=== PATIENT | female | born 1930 | race Caucasian/White ===

== ENCOUNTER 2017-01-15 16:08 | Emergency (ER) | payer MEDICARE, OTHER ==
--- NOTE | 2017-01-15 17:21 | RAD ---
INDICATION: Right lower leg pain COMPARISON: None TECHNIQUE: AP and lateral views were obtained. FINDINGS: There are no acute bony findings. There is right knee arthroplasty which is imaged in part. There is an Achilles calcaneal spur. The soft tissues are normal. IMPRESSION: NO ACUTE BONY FINDINGS.
--- NOTE | 2017-01-15 17:34 | UC ---
Lower Extremity/Ankle HPI - HPI Summary HPI Summary: 86 yo female with a 2 day hx of right ruby pain with wt bearing Pain free if sitting no trauma hx R knee replacement - History of Current Complaint Chief Complaint: UCLowerExtremity Stated Complaint: RIGHT LEG PAIN Time Seen by Provider: 01/15/17 16:36 Hx Obtained From: Patient Hx Last Menstrual Period: NA Onset/Duration: Gradual Onset, Lasting Minutes Severity Initially: Moderate Severity Currently: None Pain Intensity: 0 - no pain unless wt bearing Pain Scale Used: 0-10 Numeric Aggravating Factor(s): Standing, Ambulation Alleviating Factor(s): Rest, Elevation Able to Bear Weight: Yes - Allergies/Home Medications Allergies/Adverse Reactions: Allergies Allergy/AdvReac Type Severity Reaction Status Date / Time Naproxen Allergy Intermediate Rash And Verified 01/15/17 16:34 Itching Niacin Allergy Intermediate Flushing Verified 01/15/17 16:34 Home Medications: Home Medications Aspirin EC Low Dose* [Ecotrin EC Low Dose 81 MG*] 81 mg PO DAILY 01/15/17 [ History Confirmed 01/15/17] Calcium Carbonate-Cholecalcife [Calcium 600 + D 600-200 mg-Unit] 1 tab PO DAILY 01/15/17 [History Confirmed 01/15/17] Cholecalciferol TAB* [Vitamin D TAB*] 1,000 unit PO DAILY 01/15/17 [History Confirmed 01/15/17] Olmesartan Medoxomil [Benicar] 5 mg PO DAILY 01/15/17 [History Confirmed ] celeCOXIB CAP* [CeleBREX CAP*] 100 mg PO DAILY 01/15/17 [History Confirmed 01/15] metFORMIN* [Glucophage 500 MG TAB *] 500 mg PO BID 01/15/17 [History Confirmed 01/15/17] PMH/Surg Hx/FS Hx/Imm Hx Endocrine History Of: Reports: Diabetes Cardiovascular History Of: Reports: Hypertension Denies: Cardiac Disorders Respiratory History Of: Reports: Asthma - Surgical History Surgical History: Yes Surgery Procedure, Year, and Place: BACK SX. KNEE REPLACEMENT R. HYSTERECTOMY. maria r - Family History Known Family History: Positive: Hypertension - Social History Alcohol Use: None Substance Use Type: None Smoking Status (MU): Never Smoked Tobacco - Immunization History Most Recent Influenza Vaccination: [id number] Most Recent Tetanus Shot: about 2013 Most Recent Pneumonia Vaccination: yes, at least one Review of Systems Constitutional: Negative Skin: Negative Eyes: Negative ENT: Negative Respiratory: Negative Cardiovascular: Negative Gastrointestinal: Negative Genitourinary: Negative Motor: Negative Neurovascular: Negative Musculoskeletal: Myalgia Neurological: Negative Psychological: Negative All Other Systems Reviewed And Are Negative: Yes Physical Exam Triage Information Reviewed: Yes Appearance: Well-Appearing, No Pain Distress, Well-Nourished Vital Signs: Initial Vital Signs Temp 97.8 F 01/15/17 16:24 Pulse 88 01/15/17 16:24 Resp 16 01/15/17 16:24 BP 142/106 01/15/17 16:24 Pulse Ox 96 01/15/17 16:24 Vital Signs Reviewed: Yes Eyes: Positive: Conjunctiva Clear ENT: Negative: Nasal congestion, Nasal drainage, Tonsillar exudate, Trismus, Muffled/hoarse voice Neck: Positive: Supple Respiratory: Positive: Lungs clear, Normal breath sounds, No respiratory distress, No accessory muscle use Cardiovascular: Positive: RRR. Negative: Tachycardia, Bradycardia Musculoskeletal: Positive: Strength Intact, ROM Intact, No Edema Neurological: Positive: Alert Skin Exam: Normal Skin: Positive: Other - skin intact over ruby/no swelling or erythema/no rash leg warm good pulses Lower Extremity Course/Dx - Differential Dx/Diagnosis Provider Diagnoses: right ruby pain of uncertain cause Discharge - Discharge Plan Condition: Stable Disposition: HOME Patient Education Materials: Muscle Strain (ED) Referrals: Morgan Quiñones MD [Primary Care Provider] - 5 Days (if not better) Additional Instructions: your XR was fine tylenol ice twice daily recheck with your MD next week... BP was up 142/106 Images Front/Back of Body, Lg ([place]): 1 - pain here with wt bearing
[2017-01-15 17:45] VITALS: BP 146/82
== END 2017-01-15 17:45 | disposition home or self-care (01) ==
LOC: UCCORT 16:08
DX: M79.661 Pain in right lower leg (principal); I10 Essential (primary) hypertension; E11.9 Type 2 diabetes mellitus without complications; Z96.651 Presence of right artificial knee joint; Z79.82 Long term (current) use of aspirin; Z88.6 Allergy status to analgesic agent; Z88.8 Allergy status to other drugs, medicaments and biological substances
CPT/HCPCS: 99202; G0463

== ENCOUNTER 2017-04-27 08:26 | Inpatient (IN) | payer MEDICARE, OTHER ==
--- NOTE | 2017-04-19 18:02 | HP ---
HISTORY AND PHYSICAL: DATE OF ADMISSION/SURGERY: 04/27/17 SURGEON: Dr. Mccarthy (DICTATED BY BECCA SOTO) PROCEDURE: Right total hip arthroplasty. CHIEF COMPLAINT: Right hip pain. HISTORY OF PRESENT ILLNESS: Ms. Clement is an 87-year-old female with complaints of right hip pain secondary to advanced osteoarthritis. She has failed conservative management and has elected to proceed with a right total hip arthroplasty which is scheduled for 04/27/17. PAST MEDICAL HISTORY: 1. Hypertension. 2. Hypercholesterolemia. 3. Diabetes. 4. Depression. 5. Anxiety. 6. Diverticulitis. PAST SURGICAL HISTORY: 1. Hysterectomy. 2. Lumbar spinal fusion. 3. Right total knee arthroplasty. 4. Cholecystectomy. 5. Tonsillectomy. CURRENT MEDICATIONS: 1. Benicar 20 mg once a day. 2. Tylenol Extra Strength. 3. Celebrex 200 mg once a day. 4. Metformin 500 mg once a day. 5. Calcium, vitamin D. 6. Clonazepam 0.5 mg once a day. 7. Detrol LA once a day. 8. Crestor. ALLERGIES: To NAPROXEN, LISINOPRIL, and NIACIN. FAMILY HISTORY: Diabetes and lung cancer. SOCIAL HISTORY: She is an 87-year-old female. She lives alone. She does not smoke, use drugs or alcohol. REVIEW OF SYSTEMS: A complete 14-point review of systems was reviewed with the patient, was positive for diabetes. PHYSICAL EXAMINATION GENERAL: She is well developed, well nourished in no acute distress. VITAL SIGNS: She stands 5 feet tall, weighs 190 pounds. Her blood pressure is 149/91, her heart rate is 91. HEENT: Normocephalic, atraumatic. NECK: Supple. No palpable lymph nodes. PULMONARY: The lungs are clear to auscultation bilaterally. CARDIOVASCULAR: Regular rate and rhythm. Strong S1, S2. ABDOMEN: Soft, nontender, nondistended. NEUROLOGICAL: She is alert and oriented x3. Cranial nerves II through XII are intact. MUSCULOSKELETAL: Right lower extremity: The skin is intact. No open wounds or abrasions. She has limited range of motion with internal and external rotation of the right hip. She walks with an antalgic-type gait. Her lower extremity muscle group strengths are intact at 5/5. She has 2+ dorsalis pedis pulses and intact sensation. ASSESSMENT AND PLAN: Ms. Clement is an 87-year-old female with complaints of right hip pain secondary to advanced osteoarthritis. She has failed conservative management and has elected to proceed with a right total hip arthroplasty. The surgery is scheduled for 04/27/[address] Mccarthy. Coumadin, Colace, and Percocet were sent to her pharmacy for postoperative pain control and DVT prophylaxis. She will see Dr. Mccarthy back 2 weeks after the surgery. BECCA SOTO [id number]/[facility] #: [id number] MTDQiana
[~2017-04-27 08:26] MED LIST: Buffered Lidocaine 0.9% SYRIN* 5 ML/SYR SYRINGE INTRADERM ONE; Buffered Lidocaine 0.9% SYRIN* 5 ML/SYR SYRINGE ONE; Dexamethasone IV* 4 MG/ML 1 ML (4 MG) IV SLOW PU ONE; Dexamethasone IV* 4 MG/ML 1 ML (4 MG) ONE; Famotidine IV* 10 MG/ML 2 ML (20 mg) IV ONE; Famotidine IV* 10 MG/ML 2 ML (20 mg) ONE; ceFAZolin 2 GM PREMIX(*) 0 GM/0 ML BAG IVPB ONE
[2017-04-27] MEDS ORDERED: ceFAZolin 2 GM PREMIX(*) 2 GM/50 ML BAG IVPB ONE (08:54)
[2017-04-27] MEDS ORDERED: fentaNYL* 50 MCG/ML 2 ML VIAL (100 MCG VIAL) ONE ×2 (09:21→12:32)
[2017-04-27] MEDS ORDERED: Midazolam* 1 MG/ML 5 ML VIAL (5 MG) ONE (09:21)
[2017-04-27] MEDS ORDERED: Morphine PF AMP (0.5MG/ML)* 5 MG/10 ML AMP ONE (09:22)
[2017-04-27] MEDS ORDERED: Bupivacaine 0.5% SDV PF* 30 ML VIAL ONE (09:58)
[2017-04-27] MEDS ORDERED: Ondansetron INJ* 2 MG/ML VIAL ONE (10:46)
[2017-04-27] MEDS ORDERED: Phenylephrine IV* 40 MCG/ML 10 ML SYRINGE ONE (10:47)
[2017-04-27] MEDS ORDERED: Propofol* 10 MG/ML 20 ML BTL IV PUSH ONE ×2 (11:03→11:41)
[2017-04-27] MEDS ORDERED: Lidocaine 2% PF * 5 ML VIAL ONE (11:03)
[2017-04-27] MEDS ORDERED: EPHEDrine (Pressors)* 50 MG/ML VIAL ONE (11:03)
[2017-04-27] MEDS ORDERED: Nalbuphine* 20 MG/ML 1 ML VIAL IV PRN ×2 (11:12→11:15)
[2017-04-27] MEDS ORDERED: PROCHLORPERAZINE INJ 5 MG/ML 2 ML VIAL IV PRN ×2 (11:12→11:15)
[2017-04-27] MEDS ORDERED: Scopolamine 1.5 mg* PATCH TRANSDERM PRN ×2 (11:12→11:15)
[2017-04-27] MEDS ORDERED: fentaNYL* 50 MCG/ML 2 ML VIAL (100 MCG VIAL) IV PRN (11:12)
[2017-04-27] MEDS ORDERED: oxyCODONE TAB* 5 MG TAB PO PRN ×2 (11:12→11:15)
[2017-04-27] MEDS ORDERED: Acetaminophen IV 1GM/100ML * 100 ML IVPB ONE (11:12)
[2017-04-27] MEDS ORDERED: Naloxone* 0.4 MG/ML 1 ML VIAL IV PRN (11:15)
[2017-04-27] MEDS ORDERED: Ondansetron INJ* 2 MG/ML VIAL IV PRN (11:15)
[2017-04-27] MEDS ORDERED: Scopolomine PATCH Remove* 1 NOTE MISC PATCH OFF PRN (11:15)
[2017-04-27] MEDS ORDERED: Phenylephrine INJ* 10 MG/ML 1 ML VIAL (10 MG) ONE (11:29)
--- NOTE | 2017-04-27 12:15 | RAD ---
INDICATION: Right total hip replacement surgery. COMPARISON: Comparison is made with a prior x-ray study of the right hip from February 25, 2017. TECHNIQUE: A single portable view of the pelvis centered on the right side was obtained in the operating room. FINDINGS: The patient is undergoing a total right hip replacement surgery. The acetabular prosthesis is in place and there is a femoral prostheses template in place. There is noted within the adjacent soft tissues consistent with the patient's surgery. IMPRESSION: INTRAOPERATIVE CONTROL FILMS.
[2017-04-27] MEDS ORDERED: Polyethylene Glycol 3350* 17 GM PACKET PO PRN (13:14)
[2017-04-27] MEDS ORDERED: Bisacodyl SUPP* 10 MG SUPP PR PRN (13:14)
[2017-04-27] MEDS ORDERED: diPHENhydraMINE IV* 50 MG/ML 1 ml VIAL (BENADRYL) IV PRN (13:14)
[2017-04-27] MEDS ORDERED: Acetaminophen IV 1GM/100ML * 100 ML ONE (14:00)
--- NOTE | 2017-04-27 14:07 | RAD ---
Indication: Right hip pain. 2 views of the right hip and an AP view the pelvis demonstrates right hip replacement in satisfactory position. IMPRESSION: Right hip replacement in satisfactory position.
[2017-04-27] MEDS: Acetaminophen TAB* 325 MG PO SCH ×2 (15:34→21:06)
[2017-04-27] MEDS ORDERED: Dextrose 50% Syringe 50 ML* 25 GM/50 ML SYRINGE IV PUSH PRN (16:06)
[2017-04-27] MEDS ORDERED: Warfarin TAB(*) 6 MG PO ONE (17:00)
[2017-04-27] MEDS: ceFAZolin VIAL(*) 1 GM in NS 0.9% 50 ML* 50 ML IVPB SCH (17:10)
[2017-04-27] MEDS: Insulin LISPRO* 1 UNITS UNIT SUBCUT SCH (17:17)
[2017-04-27] MEDS: Docusate CAP* 100 MG PO SCH (21:06)
[2017-04-27] MEDS: Citalopram TAB* 10 MG PO SCH (21:06)
[2017-04-27] MEDS: clonazePAM TAB(*) 0.5 MG PO SCH (21:06)
--- NOTE | 2017-04-27 23:18 | CONS ---
CC: Dr. Quiñones* MEDICINE CONSULTATION REPORT: DATE OF CONSULT: 04/27/17 PROVIDER: Hector Pal NP CONSULTING PHYSICIAN: Dr. Tia Bello (as dictated by Hector Pal NP). ATTENDING PHYSICIAN: Dr. Amirah Mccarthy, Orthopedic Surgery. PRIMARY CARE PROVIDER: Dr. Quiñones. REASON FOR CONSULT: Co-medical management in the postoperative period following right total hip arthroplasty. HISTORY OF PRESENT ILLNESS: Ms. Clement is an 87-year-old female, who is status post right total hip arthroplasty. The patient reports ongoing pain and difficulty with the right hip, has failed conservative outpatient management. I did see the patient in the postoperative period and she is still somewhat sleepy. However, she denies any recent fever, chills, cold or flu symptoms, chest pain, shortness of breath, abdominal pain, nausea, vomiting. She currently feels fine and denies any pain to the hip. Her only complaint at the moment is itchiness of the face. Prior to admission, the patient had no acute complaints and stated that she was feeling in relatively good health. PAST MEDICAL HISTORY: Significant for: 1. Osteoarthritis. 2. Diabetes mellitus. 3. Hypertension. 4. Hypercholesterolemia. 5. Urinary incontinence. 6. Diverticulitis. 7. Dysthymia. 8. Intertrigo. PAST SURGICAL HISTORY: 1. Hysterectomy. 2. Lumbar spinal fusion. 3. Right total knee arthroplasty. 4. Cholecystectomy. 5. Tonsillectomy. HOME MEDICATIONS: 1. Benicar 20 mg b.i.d. 2. Cholecalciferol 1000 units daily. 3. Calcium, vitamin D supplement 1 tab daily. 4. Metformin 500 mg daily. 5. Clonazepam 0.5 mg b.i.d. 6. Citalopram 10 mg at bedtime. 7. Rosuvastatin 5 mg q.a.m. 8. Detrol LA 4 mg q.a.m. 9. Celecoxib 100 mg daily. 10. Aspirin 81 mg daily. 11. Furosemide 20 mg daily p.r.n. for leg swelling. ALLERGIES: Include LISINOPRIL, NAPROXEN, NIACIN. FAMILY HISTORY: Includes history of diabetes and lung cancer. SOCIAL HISTORY: Ms. Clement denies any tobacco, alcohol, illicit drug use. She does live alone. She was recently , she states her in June of last year. She does report good support from her family and states that her daughters, Kellie and Yana Nazario, are her surrogate decision makers in the event of emergency. REVIEW OF SYSTEMS: As per HPI, all those not mentioned are negative. PHYSICAL EXAM: General: Ms. Clement is an 87-year-old female who is well developed, well nourished, she is lying in the PACU stretcher, no acute distress. Vital Signs: Temperature 97.0, heart rate 86, respiratory rate 14, blood pressure 111/57, O2 saturation is 97% on 2 L nasal cannula. HEENT: Head is atraumatic, normocephalic. Face is symmetrical. Pupils are equal, round, and reactive to light. Extraocular movements are intact. Oral mucosa appears somewhat tacky. Neck is supple. No lymphadenopathy appreciated. No JVD noted. Cardiac: S1, S2. Heart sounds regular rate and rhythm. No murmurs, rubs, or gallops. No lower extremity edema noted and distal pulses are 2+. Respiratory : Lungs are clear to auscultation. No accessary muscle use noted. Abdomen: Soft, nontender, nondistended. Bowel sounds present times all 4 quadrants. Musculoskeletal: There is no clubbing or cyanosis. The patient does have a clean, dry, intact dressing to the right hip. Skin: Limited assessment but appears grossly intact. Neuro: The patient is able to move all extremities. Sensation intact to light touch. She is alert and oriented but is drowsy at this time and recall is slow. LABORATORY DATA: There is no current laboratory data for our review. ASSESSMENT AND PLAN: Ms. Clement is an 87-year-old female who is now status post right total hip arthroplasty after failing outpatient conservative management. Our recommendations are as follows: 1. Status post right total hip replacement postop day 0: Management per Ortho. Continue with pain management, PT/OT consults, and trending the patient' s H and H and other labs. 2. Diabetes: The patient states that she has good blood glucose control at home and is on metformin at home. We will switch her at this time to lispro sliding scale insulin and hold her metformin and check fingerstick blood glucoses a.c. and h.s. 3. Hypertension: Currently normotensive. Continue home losartan, withhold parameters. 4. Hyperlipidemia and hypercholesterolemia: Continue home statin. 5. History of urinary incontinence: Continue Detrol LA. 6. History of dysthymia and depression: Continue home citalopram. 7. Osteoarthritis: Continue p.r.n. pain medication, we will hold Celebrex. 8. History of lower extremity edema, not a current issue. Continue to monitor. 9. FEN: Consistent carbohydrate diet. 10. DVT prophylaxis: Per Ortho, the patient is ordered enoxaparin and warfarin. 11. Code status: The patient is a full code. TIME SPENT: Time spent on this consultation approximately 45 minutes. More than half the time was spent [id number] with the patient obtaining history and physical, performing physical examination, and reviewing plan of care. Plan of care also reviewed with attending, Dr. Bello, who is in agreement. HECTOR PAL NP [id number]/[facility] #: [id number] CINDY
[2017-04-28] MEDS: ceFAZolin VIAL(*) 1 GM in NS 0.9% 50 ML* 50 ML IVPB SCH ×2 (00:44→08:25)
[2017-04-28] MEDS ORDERED: Ondansetron INJ* 2 MG/ML VIAL IV PRN (02:00)
[2017-04-28] MEDS ORDERED: oxyCODONE TAB* 5 MG TAB PO PRN (02:00)
[2017-04-28] MEDS ORDERED: Morphine INJ* 2 MG/ML 1 ML SYRINGE IV PRN (02:00)
[2017-04-28] MEDS ORDERED: oxyCODONE/Acetamin 5/325 MG* TAB PO PRN (02:00)
[2017-04-28] MEDS: Acetaminophen TAB* 325 MG PO SCH (04:33)
[2017-04-28 07:12] LABS: Hematocrit 27 % (35-47)
[2017-04-28] MEDS: oxyCODONE/Acetamin 5/325 MG* TAB PO PRN ×2 (07:16→18:09)
[2017-04-28 07:49] LABS: BUN/Creatinine Ratio 26.9 (8-20); Blood Urea Nitrogen 29 mg/dL (6-24); CO2 Carbon Dioxide 21 mmol/L (22-32); Calcium 8.3 mg/dL (8.6-10.3); Chloride 104 mmol/L (101-111); EGFR African American 61.6 (>60); EGFR Non-African American 47.9 (>60); Glucose 142 mg/dL (70-100); Sodium 134 mmol/L (133-145)
[2017-04-28 07:53] LABS: Anion Gap 9 mmol/L (2-11)
[2017-04-28] MEDS: Insulin LISPRO* 1 UNITS UNIT SUBCUT SCH ×3 (08:20→18:08)
[2017-04-28] MEDS: Atorvastatin* 10 MG TAB PO SCH (08:22)
[2017-04-28] MEDS: Docusate CAP* 100 MG PO SCH (08:22)
[2017-04-28] MEDS: clonazePAM TAB(*) 0.5 MG PO SCH (08:22)
[2017-04-28] MEDS: Oxybutynin XL TAB* 5 MG PO SCH (08:22)
[2017-04-28] MEDS ORDERED: metFORMIN* 500 MG TAB PO SCH (09:00)
--- NOTE | 2017-04-28 11:02 | PN ---
Progress Note - Progress Note SOAP: Subjective: []Patient seen OOB in chair. States she has no hip pain while at rest. Tolerable when up. Denies SOB, dizziness or CP. Objective: [] Vital Signs Temp 97.4 F 04/28/17 07:58 Pulse 79 04/28/17 07:58 Resp 14 04/28/17 09:16 BP 120/56 04/28/17 07:58 Pulse Ox 100 04/28/17 08:00 Intake & Output 04/27/17 04/28/17 04/28/17 18:59 06:59 18:59 Intake Total 3365 1460 480 Output Total 350 500 75 Balance 3015 960 405 Weight 185 lb Intake: IV Fluids 3050 1020 ABX - CEFAZOLIN 115 LR 3000 905 NS 50ML, Cefazolin 2G 50 Oral 315 440 480 Output: Coelho 350 500 75 Other: Estimated Blood Loss 300 Comment Laboratory Results - last 24 hr 04/27/17 04/27/17 04/28/17 16:47 21:06 05:14 Hgb Hct INR (Anticoag Therapy) Sodium 134 Potassium TNP Chloride 104 Carbon Dioxide 21 L Anion Gap 9 BUN 29 H Creatinine 1.08 H Est GFR ( Amer) 61.6 Est GFR (Non-Af Amer) 47.9 BUN/Creatinine Ratio 26.9 H Glucose 142 H POC Glucose (mg/dL) 204 H 205 H Calcium 8.3 L 04/28/17 04/28/17 04/28/17 06:58 06:58 07:07 Hgb 9.0 L Hct 27 L INR (Anticoag Therapy) 0.98 Sodium Potassium Chloride Carbon Dioxide Anion Gap BUN Creatinine Est GFR ( Amer) Est GFR (Non-Af Amer) BUN/Creatinine Ratio Glucose POC Glucose (mg/dL) 157 H Calcium Right hip dressing is dry and intact calf NT and soft +DF/PF right ankle sensation intact Assessment: []s/p Right total hip arthroplasty POD #1 Plan: []PT/OT WBAT RLE Coumadin with Lovenox bridge- 8 mg today PMRU consult pending
--- NOTE | 2017-04-28 11:09 | OP ---
DATE OF OPERATION: 04/27/17 - ROOM #336 DATE OF : [birth year] ATTENDING SURGEON: Amirah Mccarthy MD COAL TRIMMER MACHINE OPERATOR: BECCA Luu. Ms. Davies did help throughout the procedure with preparation of the leg, wound retraction, manipulation of the hip, and wound closure. ANESTHESIOLOGIST: Carmela Vera MD ANESTHESIA: Spinal. PRE-OP DIAGNOSIS: Severe end-stage degenerative osteoarthritis of the right hip joint. POST-OP DIAGNOSIS: Severe end-stage degenerative osteoarthritis of the right hip joint. OPERATIVE PROCEDURE: Right total hip arthroplasty. COMPLICATIONS: None. EBL: 300 cc. SPECIMEN: Femoral head and acetabular reaming sent to pathology. HARDWARE USED: This is uncemented Alabaster total hip hardware. For the cup, a Trident hemispherical acetabular shell 52E, one 16-mm and one 20-mm screw used. For the liner, a Trident X3 0-degree polyethylene insert 40E. For the stem, an Accolade TMZF size 3 with a 132-degree neck. For the head, a Biolox delta ceramic V40 femoral head size 40 with a -2.5 adaptor sleeve. BRIEF HISTORY/INDICATION: Ms. Clement is an 87-year-old female with years of increasingly severe right hip pain. She failed conservative treatment with antiinflammatories, pain medication, activity modification, and physical therapy. Radiographs confirmed end-stage arthritis of the hip joint. The patient elected to have right total hip arthroplasty due to continued pain and decreased quality of life. Informed consent was obtained from the patient. She understood the risks of surgery included, but were not limited to bleeding, infection, damage to nearby structures, continued pain, need for further surgery , intraoperative fracture, nerve palsy, hardware failure or loosening, dislocation, leg length discrepancy, stroke, heart attack, blood clot, and . She wished to proceed. INTRAOPERATIVE FINDINGS: Intraoperatively, the patient was noted to have severe degenerative osteoarthritis with complete loss of cartilage around the acetabulum and femoral head. DESCRIPTION OF PROCEDURE: Ms. Clement was identified in the preanesthesia unit. Her right lower extremity was marked as the correct operative site. Informed consent was signed and placed in the chart. The patient was taken to the operating room and placed under spinal anesthesia. A Coelho catheter was placed. She was placed in the left lateral decubitus position on the peg board and all bony prominences were well padded. Right lower extremity was prepped and draped in the usual sterile fashion. Preop time-out was made to correctly identify the patient's side and site. Appropriate perioperative antibiotics were given within 1 hour of incision. A 12-cm posterior hip incision was made with a 10-blade and carried down to the lateral fascial layer. Lateral fascial layer was incised in line with the skin incision. Charnley retractor was placed and the posterior aspect of the hip joint was visualized. The piriformis and conjoint tendons were identified and elevated off the posterolateral femur using electrocautery. These were tagged with two #5 Ethibonds. Next, a standard capsular flap was made with electrocautery and also tagged with two #5 Ethibonds. The hip was carefully dislocated. Lesser troch to center of the femoral head measured 50 mm. Oscillating saw was used to make the appropriate femoral neck cut. The femoral head was sent to pathology. The femur was carefully retracted anteriorly. After appropriate placement of retractors, the acetabulum was visualized. Long-handle knife was used to sharply remove any remaining labrum from the acetabular rim. The acetabulum was sequentially reamed up to a size-51 reamer. A 51 trial was impacted and had good fit. Final implant for the acetabular cup was a 52E Trident hemispherical acetabular shell. A good bleeding bone bed was obtained. Acetabular cup was impacted into the acetabulum without difficulty. There was good stability as well as appropriate anteversion and abduction angle. Two screws length 16 and 20 were placed in the superoposterior quadrant for extra stability. A Trident X3 0-degree polyethylene insert 40E was chosen. This was impacted into the acetabular cup without difficulty. Stability of the liner was checked and rechecked and noted to be stable. Attention was next turned to preparation of the femur. A canal finder was used to enter the proximal femur. Femur was sequentially broached up to a size 3. Size-3 broach had good fit and appropriate anteversion. A 132-degree neck trial with a 40 -2.5 head trial was chosen. Lesser troch to center of the femoral neck measured approximately 52 mm. The hip was reduced and taken through range of motion. The hip was stable in all positions. There was good soft tissue tension and appropriate leg lengths. The hip was carefully dislocated. All trials were carefully removed. Final femoral stem chosen was an Accolade size 3 with a 132-degree neck. This was impacted into the femoral canal without difficulty. There was good fit and appropriate anteversion. A Biolox delta ceramic femoral head, size 40 with a - 2.5 adaptor sleeve was chosen. This was impacted onto the femoral neck without difficulty. The hip was reduced and taken through range of motion. The hip was stable in all positions. The hip was copiously irrigated with sterile saline. Previously tagged capsule and tendons were reapproximated to the posterolateral femur through 2 trochanteric drill holes. Lateral fascial layer was closed using interrupted #1 Vicryls. The rest of the soft tissue was closed in layers with 0 and 2-0 Vicryls. Skin was closed using running 3-0 Monocryl and Dermabond. Sterile Adaptic, 4x4s, and paper tape were used to cover the incision. The patient's anesthesia was reversed without difficulty. She was taken to the PACU in stable condition. Intended weightbearing will be weightbearing as tolerated with posterior hip precautions. Intended DVT prophylaxis will be Coumadin with a Lovenox bridge. [id number]/[facility] #: [id number] CINDY
--- NOTE | 2017-04-28 11:27 | PN ---
Subjective Date of Service: 04/28/17 Interval History: Patient seen and examined at bedside. Reports relatively good pain control Denies CP, SOB, fever/chills, n/v. Participating with PT No acute concerns. Family History: Unchanged from Admission Social History: Unchanged from Admission Past Medical History: Unchanged from Admission Objective Active Medications: Acetaminophen (Tylenol Tab*) 975 mg PO Q8H [facility] Stop: 04/28/17 11:59 Last Admin: 04/28/17 04:33 Dose: 975 mg Acetaminophen (Tylenol Tab*) 650 mg PO Q4H PRN PRN Reason: PAIN OR TEMPERATURE Atorvastatin Calcium (Lipitor*) 10 mg PO QAM [facility]LENE PRN Reason: Protocol Last Admin: 04/28/17 08:22 Dose: 10 mg Bisacodyl (Dulcolax Supp*) 10 mg [place] DAILY PRN PRN Reason: constipation Citalopram Hydrobromide (Celexa Tab*) 10 mg PO BEDTIME [facility] Last Admin: 04/27/17 21:06 Dose: 10 mg Clonazepam (Klonopin Tab(*)) 0.5 mg PO BID [facility] Last Admin: 04/28/17 08:22 Dose: 0.5 mg Dextrose (D50w Syringe 50 Ml*) 12.5 gm IV PUSH .FOR FS < 60 - SS PRN PRN Reason: FS < 60 Diphenhydramine HCl (Benadryl Iv*) 12.5 mg IV Q6H PRN PRN Reason: PRURITIS Last Admin: 04/28/17 04:31 Dose: 12.5 mg Docusate Sodium (Colace Cap*) 100 mg PO BID [facility] Last Admin: 04/28/17 08:22 Dose: 100 mg Enoxaparin Sodium (Lovenox(*)) 30 mg SUBCUT Q24H [facility] Lactated Ringer's (Lactated Ringers 1000 Ml Bag*) 1,000 mls @ 100 mls/hr IV PER RATE [facility] Last Admin: 04/28/17 11:20 Dose: 100 mls/hr Insulin Human Lispro (Humalog*) 0 units SUBCUT AC [facility] PRN Reason: Protocol Last Admin: 04/28/17 08:20 Dose: 3 units Lactulose (Lactulose*) 30 ml PO Q6H PRN PRN Reason: constipation Magnesium Hydroxide (Milk Of Magnesia Liq*) 30 ml PO Q6H PRN PRN Reason: constipation Morphine Sulfate (Morphine Inj (Syringe)*) 2 mg IV Q2H PRN PRN Reason: PAIN Ondansetron HCl (Zofran Inj*) 4 mg IV Q6H PRN PRN Reason: nausea Oxybutynin Chloride (Ditropan Xl Tab*) 10 mg PO QAM [facility] PRN Reason: Protocol Last Admin: 04/28/17 08:22 Dose: 10 mg Oxycodone HCl (Roxycodone Tab*) 10 mg PO Q4H PRN PRN Reason: SEVERE PAIN Oxycodone/Acetaminophen (Percocet 5/325 Tab*) 1 tab PO Q3H PRN PRN Reason: PAIN - MODERATE Last Admin: 04/28/17 07:16 Dose: 1 tab Oxycodone/Acetaminophen (Percocet 5/325 Tab*) 2 tab PO Q3H PRN PRN Reason: PAIN - MODERATE Pharmacy Profile Note (Scopolomine Patch Remove*) 1 note PATCH OFF Q72H ONE Stop: 04/30/17 11:14 Polyethylene Glycol/Electrolytes (Miralax*) 17 gm PO DAILY PRN PRN Reason: Constipation Scopolamine (Transderm-Scop 1.5 Mg Patch*) 1 patch TRANSDERM Q72H PRN PRN Reason: nausea Last Admin: 04/27/17 18:30 Dose: 1 patch Warfarin Sodium (Coumadin Tab(*)) 8 mg PO ONCE@1700 ONE PRN Reason: Protocol Stop: 04/28/17 17:01 Vital Signs 04/27/17 04/27/17 04/27/17 13:13 13:15 13:20 Temperature 97.0 F Pulse Rate 88 90 87 Respiratory 16 12 12 Rate Blood Pressure 113/62 110/66 118/58 (mmHg) O2 Sat by Pulse 98 98 98 Oximetry 04/27/17 04/27/17 04/27/17 13:30 14:01 14:15 Temperature Pulse Rate 86 87 84 Respiratory 12 12 12 Rate Blood Pressure 108/50 114/60 111/57 (mmHg) O2 Sat by Pulse 99 97 97 Oximetry 04/27/17 04/27/17 04/27/17 14:30 14:45 15:00 Temperature 97.0 F Pulse Rate 84 86 83 Respiratory 12 12 14 Rate Blood Pressure 111/55 113/57 123/65 (mmHg) O2 Sat by Pulse 97 98 100 Oximetry 04/27/17 04/27/17 04/27/17 15:13 15:16 15:32 Temperature 96.8 F Pulse Rate 83 Respiratory 14 14 14 Rate Blood Pressure 123/65 (mmHg) O2 Sat by Pulse 100 Oximetry 04/27/17 04/27/17 04/27/17 16:09 16:32 16:49 Temperature 96.7 F Pulse Rate 83 Respiratory 15 15 Rate Blood Pressure 109/47 (mmHg) O2 Sat by Pulse 96 96 Oximetry 04/27/17 04/27/17 04/27/17 17:16 19:19 19:50 Temperature 96.8 F 97.3 F Pulse Rate 83 79 Respiratory 15 15 14 Rate Blood Pressure 103/54 96/58 (mmHg) O2 Sat by Pulse 99 99 Oximetry 04/27/17 04/27/17 04/27/17 21:06 21:12 22:15 Temperature 97.2 F Pulse Rate 82 Respiratory 14 15 12 Rate Blood Pressure 138/62 (mmHg) O2 Sat by Pulse 100 Oximetry 04/27/17 04/27/17 04/27/17 23:06 23:14 23:33 Temperature 97.3 F Pulse Rate 74 Respiratory 12 12 16 Rate Blood Pressure 111/52 (mmHg) O2 Sat by Pulse 98 Oximetry 04/28/17 04/28/17 04/28/17 00:01 01:15 02:00 Temperature Pulse Rate Respiratory 16 12 14 Rate Blood Pressure (mmHg) O2 Sat by Pulse Oximetry 04/28/17 04/28/17 04/28/17 03:44 04:31 04:39 Temperature 97.5 F Pulse Rate 81 Respiratory 16 16 16 Rate Blood Pressure 103/58 (mmHg) O2 Sat by Pulse 100 Oximetry 04/28/17 04/28/17 04/28/17 05:31 06:10 07:16 Temperature Pulse Rate Respiratory 10 12 16 Rate Blood Pressure (mmHg) O2 Sat by Pulse Oximetry 04/28/17 04/28/17 04/28/17 07:44 07:58 08:00 Temperature 97.4 F 97.4 F Pulse Rate 79 79 Respiratory 16 16 16 Rate Blood Pressure 87/51 120/56 (mmHg) O2 Sat by Pulse 100 100 100 Oximetry 06/21/17 06/21/17 06/21/17 08:22 09:16 10:22 Temperature Pulse Rate Respiratory 16 14 16 Rate Blood Pressure (mmHg) O2 Sat by Pulse Oximetry Oxygen Devices in Use Now: None Appearance: Elderly female, OOB to chair, NAD Eyes: PERRLA Ears/Nose/Mouth/Throat: Mucous Membranes Moist Neck: NL Appearance and Movements; NL JVP Respiratory: Symmetrical Chest Expansion and Respiratory Effort, Clear to Auscultation Cardiovascular: NL Sounds; No Murmurs; No JVD, RRR Abdominal: NL Sounds; No Tenderness; No Distention Extremities: - - right hip dressing cdi, distally nvi Neurological: Alert and Oriented x 3 Lines/Tubes/Other Access: Clean, Dry and Intact Peripheral IV Result Diagrams: 04/28/17 06:58 04/28/17 11:20 Assess/Plan/Problems-Billing Assessment: 87 yo female with a PMH of OA, DM, HTN, HLD, depression, and urinary incontinence who is s/p right total hip replacement on 04/27 - Patient Problems (1) Status post total hip replacement, right Code(s): Z96.641 - PRESENCE OF RIGHT ARTIFICIAL HIP JOINT Comment: POD #1, management per ortho PT/OT HH stable (2) Diabetes mellitus Code(s): E11.9 - TYPE 2 DIABETES MELLITUS WITHOUT COMPLICATIONS Comment: Controlled. Continue Lispro SSI Hold home metformin. (3) HTN (hypertension) Code(s): I10 - ESSENTIAL (PRIMARY) HYPERTENSION Comment: Normotensive with occasional hypotension Continue losartan with hold parameters. (4) HLD (hyperlipidemia) Code(s): E78.5 - HYPERLIPIDEMIA, UNSPECIFIED Comment: Continue statin. (5) Urinary incontinence Code(s): R32 - UNSPECIFIED URINARY INCONTINENCE Comment: Continue oxybutinin. (6) Depression Code(s): F32.9 - MAJOR DEPRESSIVE DISORDER, SINGLE EPISODE, UNSPECIFIED Comment: Continue citalopram. (7) DVT prophylaxis Comment: Per ortho
[2017-04-28] MEDS ORDERED: Enoxaparin(*) 30 MG/0.3 ML SYR SUBCUT SCH (12:00)
[2017-04-28] MEDS: Acetaminophen TAB* 325 MG PO PRN (12:17)
[2017-04-28] MEDS ORDERED: Warfarin TAB(*) 4 MG PO ONE (17:00)
[2017-04-29] MEDS: clonazePAM TAB(*) 0.5 MG PO SCH ×4 (00:38→21:46)
[2017-04-29] MEDS: Citalopram TAB* 10 MG PO SCH ×2 (00:38→20:38)
[2017-04-29] MEDS: Docusate CAP* 100 MG PO SCH ×3 (00:39→20:38)
[2017-04-29] MEDS: oxyCODONE/Acetamin 5/325 MG* TAB PO PRN ×2 (06:26→11:26)
[2017-04-29 06:32] LABS: Hematocrit 28 % (35-47); Hemoglobin 9.2 g/dl (12.0-16.0)
--- NOTE | 2017-04-29 07:44 | PN ---
Progress Note - Progress Note SOAP: Subjective: Pt. reports "pain all over" this am. Objective: RLE - dressing changed, inc c/d/i. thigh soft, distally nvi. Vital Signs: Temp Pulse Resp BP Pulse Ox 98.0 F 103 12 127/48 100 04/29/17 03:46 04/29/17 03:46 04/29/17 06:26 04/29/17 03:46 04/29/17 03:46 Laboratory Results - last 24 hr 04/28/17 04/28/17 04/28/17 05:14 11:20 11:57 Hgb Hct INR (Anticoag Therapy) Sodium 134 Potassium TNP 4.5 Chloride 104 Carbon Dioxide 21 L Anion Gap 9 BUN 29 H Creatinine 1.08 H Est GFR ( Amer) 61.6 Est GFR (Non-Af Amer) 47.9 BUN/Creatinine Ratio 26.9 H Glucose 142 H POC Glucose (mg/dL) 134 H Calcium 8.3 L 04/28/17 04/28/17 04/29/17 17:17 22:07 06:24 Hgb 9.2 L Hct 28 L INR (Anticoag Therapy) Sodium Potassium Chloride Carbon Dioxide Anion Gap BUN Creatinine Est GFR ( Amer) Est GFR (Non-Af Amer) BUN/Creatinine Ratio Glucose POC Glucose (mg/dL) 162 H 141 H Calcium 04/29/17 06:24 Hgb Hct INR (Anticoag Therapy) 1.70 H Sodium Potassium Chloride Carbon Dioxide Anion Gap BUN Creatinine Est GFR ( Amer) Est GFR (Non-Af Amer) BUN/Creatinine Ratio Glucose POC Glucose (mg/dL) Calcium Assessment: 87 yo F pod 2 s/p RTHA Plan: cont. prn analgesia tachycardia overnight, likely due to pain, will obtain ekg and speak with hospitalist consult wbat rle oobtc for meals plan pmru today or tomorrow d/c lovenox, 4 mg coumadin tonight
[2017-04-29] MEDS: Insulin LISPRO* 1 UNITS UNIT SUBCUT SCH ×3 (08:23→17:12)
[2017-04-29] MEDS: Magnesium Hydroxide LIQ* 30 ML UDC PO PRN ×2 (08:24→16:04)
[2017-04-29] MEDS: Atorvastatin* 10 MG TAB PO SCH (08:25)
[2017-04-29] MEDS: Oxybutynin XL TAB* 5 MG PO SCH (08:25)
[2017-04-29] MEDS: Acetaminophen TAB* 325 MG PO PRN (08:26)
--- NOTE | 2017-04-29 10:31 | PN ---
Subjective Date of Service: 04/29/17 Interval History: Patient seen and examined at bedside. Patient is GUL[place] and requires repeat questioning in order to understand what is being asked. She reports increased pain overnight. She denies CP, SOB, fever/chills, n/v. She cannot appear to get comfortable and is very restless in the recliner. Patient denies dysuria but states "I haven't peed yet." Family History: Unchanged from Admission Social History: Unchanged from Admission Past Medical History: Unchanged from Admission Objective Active Medications: Acetaminophen (Tylenol Tab*) 650 mg PO Q4H PRN PRN Reason: PAIN OR TEMPERATURE Last Admin: 04/29/17 08:26 Dose: 650 mg Atorvastatin Calcium (Lipitor*) 10 mg PO QAM [facility] PRN Reason: Protocol Last Admin: 04/29/17 08:25 Dose: 10 mg Bisacodyl (Dulcolax Supp*) 10 mg [place] DAILY PRN PRN Reason: constipation Citalopram Hydrobromide (Celexa Tab*) 10 mg PO BEDTIME [facility] Last Admin: 04/29/17 00:38 Dose: Not Given Clonazepam (Klonopin Tab(*)) 0.5 mg PO BID [facility] Last Admin: 04/29/17 08:25 Dose: 0.5 mg Dextrose (D50w Syringe 50 Ml*) 12.5 gm IV PUSH .FOR FS < 60 - SS PRN PRN Reason: FS < 60 Diphenhydramine HCl (Benadryl Iv*) 12.5 mg IV Q6H PRN PRN Reason: PRURITIS Last Admin: 04/28/17 04:31 Dose: 12.5 mg Docusate Sodium (Colace Cap*) 100 mg PO BID [facility] Last Admin: 04/29/17 08:25 Dose: 100 mg Lactated Ringer's (Lactated Ringers 1000 Ml Bag*) 1,000 mls @ 100 mls/hr IV PER RATE [facility] Last Admin: 04/28/17 21:59 Dose: 100 mls/hr Insulin Human Lispro (Humalog*) 0 units SUBCUT AC [facility] PRN Reason: Protocol Last Admin: 04/29/17 08:23 Dose: 3 units Lactulose (Lactulose*) 30 ml PO Q6H PRN PRN Reason: constipation Magnesium Hydroxide (Milk Of Magnesia Liq*) 30 ml PO Q6H PRN PRN Reason: constipation Last Admin: 04/29/17 08:24 Dose: 30 ml Morphine Sulfate (Morphine Inj (Syringe)*) 2 mg IV Q2H PRN PRN Reason: PAIN Ondansetron HCl (Zofran Inj*) 4 mg IV Q6H PRN PRN Reason: nausea Oxybutynin Chloride (Ditropan Xl Tab*) 10 mg PO QAM [facility] PRN Reason: Protocol Last Admin: 04/29/17 08:25 Dose: 10 mg Oxycodone HCl (Roxycodone Tab*) 10 mg PO Q4H PRN PRN Reason: SEVERE PAIN Oxycodone/Acetaminophen (Percocet 5/325 Tab*) 1 tab PO Q3H PRN PRN Reason: PAIN - MODERATE Last Admin: 04/29/17 06:26 Dose: 1 tab Oxycodone/Acetaminophen (Percocet 5/325 Tab*) 2 tab PO Q3H PRN PRN Reason: PAIN - MODERATE Last Admin: 04/28/17 21:30 Dose: 2 tab Pharmacy Profile Note (Scopolomine Patch Remove*) 1 note PATCH OFF Q72H ONE Stop: 04/30/17 11:14 Pharmacy Profile Note (Coumadin Daily Reminder*) 1 note FOLLOW UP 1700 [facility] Polyethylene Glycol/Electrolytes (Miralax*) 17 gm PO DAILY PRN PRN Reason: Constipation Scopolamine (Transderm-Scop 1.5 Mg Patch*) 1 patch TRANSDERM Q72H PRN PRN Reason: nausea Last Admin: 04/27/17 18:30 Dose: 1 patch Warfarin Sodium (Coumadin Tab(*)) 4 mg PO ONCE@1700 ONE PRN Reason: Protocol Stop: 04/29/17 17:01 Vital Signs 04/28/17 04/28/17 04/28/17 11:47 12:05 15:31 Temperature 97.4 F 97.8 F Pulse Rate 90 90 Respiratory 16 16 Rate Blood Pressure 88/41 120/50 119/40 (mmHg) O2 Sat by Pulse 90 95 Oximetry 04/28/17 04/28/17 04/28/17 15:41 18:09 19:53 Temperature Pulse Rate Respiratory 18 16 Rate Blood Pressure (mmHg) O2 Sat by Pulse 95 Oximetry 04/28/17 04/28/17 04/28/17 20:01 20:19 21:30 Temperature 98.3 F Pulse Rate 96 Respiratory 16 18 20 Rate Blood Pressure 122/62 (mmHg) O2 Sat by Pulse 99 Oximetry 04/28/17 04/28/17 04/29/17 23:30 23:40 00:00 Temperature 97.6 F Pulse Rate 118 Respiratory 16 16 Rate Blood Pressure 116/45 (mmHg) O2 Sat by Pulse 84 99 Oximetry 04/29/17 04/29/17 04/29/17 00:02 03:46 06:26 Temperature 98.0 F Pulse Rate 103 103 Respiratory 14 12 Rate Blood Pressure 127/48 (mmHg) O2 Sat by Pulse 99 100 Oximetry 04/29/17 04/29/17 04/29/17 07:32 08:00 08:15 Temperature 98.1 F Pulse Rate 105 Respiratory 16 Rate Blood Pressure 91/43 98/38 (mmHg) O2 Sat by Pulse 98 98 Oximetry 04/29/17 04/29/17 08:25 08:26 Temperature Pulse Rate Respiratory 16 16 Rate Blood Pressure (mmHg) O2 Sat by Pulse Oximetry Oxygen Devices in Use Now: None Appearance: Elderly female, OOB to chair, appears uncomfortable Eyes: PERRLA Ears/Nose/Mouth/Throat: Mucous Membranes Moist Neck: NL Appearance and Movements; NL JVP Respiratory: Symmetrical Chest Expansion and Respiratory Effort, Clear to Auscultation Cardiovascular: NL Sounds; No Murmurs; No JVD, RRR - tachycardic Abdominal: NL Sounds; No Tenderness; No Distention Extremities: - - right hip c/d/i, no purulence Neurological: Alert and Oriented x 3 Lines/Tubes/Other Access: Clean, Dry and Intact Peripheral IV Result Diagrams: 04/29/17 06:24 04/29/17 11:04 Assess/Plan/Problems-Billing Assessment: 87 yo female with a PMH of OA, DM, HTN, HLD, depression, and urinary incontinence who is s/p right total hip replacement on 04/27 - Patient Problems (1) Status post total hip replacement, right Code(s): Z96.641 - PRESENCE OF RIGHT ARTIFICIAL HIP JOINT Comment: POD #2, management per ortho PT/OT HH stable Pain management (2) Tachycardia Code(s): R00.0 - TACHYCARDIA, UNSPECIFIED Comment: Suspect patient is dry; pain also likely contributing Patient also with mild hypotension - will give IVF bolus DDx includes atelectasis, infection, post op pneumonia, PE, uncontrolled pain Pt with supplemental O2 but denies ever feeling SOB, check XR Hip site appears cdi and without appearance of infection Denies CP, pleuritic pain, lower suspicion for PE but will continue to eval for this Will change prn to standing Tylenol. May benefit from Toradol, if okay with ortho (will check with patient and pharmacy on Naproxen allergy first) (3) Urinary retention Code(s): R33.9 - RETENTION OF URINE, UNSPECIFIED Comment: Suspect secondary to opioid use Continue bladder scan q4h Fluid bolus (4) Diabetes mellitus Code(s): E11.9 - TYPE 2 DIABETES MELLITUS WITHOUT COMPLICATIONS Comment: Controlled. Continue Lispro SSI Hold home metformin. (5) HTN (hypertension) Code(s): I10 - ESSENTIAL (PRIMARY) HYPERTENSION Comment: Normotensive with occasional hypotension Hold ARB (6) HLD (hyperlipidemia) Code(s): E78.5 - HYPERLIPIDEMIA, UNSPECIFIED Comment: Continue statin. (7) Urinary incontinence Code(s): R32 - UNSPECIFIED URINARY INCONTINENCE Comment: Continue oxybutinin. (8) Depression Code(s): F32.9 - MAJOR DEPRESSIVE DISORDER, SINGLE EPISODE, UNSPECIFIED Comment: Continue citalopram. (9) DVT prophylaxis Comment: Per ortho Status and Disposition: Inpatient admit. Dispo per ortho. Hospitalist following for co-medical management.
[2017-04-29 10:44] LABS: BUN/Creatinine Ratio 27.9 (8-20); Blood Urea Nitrogen 29 mg/dL (6-24); CO2 Carbon Dioxide 21 mmol/L (22-32); Calcium 8.2 mg/dL (8.6-10.3); Chloride 102 mmol/L (101-111); EGFR African American 64.3 (>60); Glucose 137 mg/dL (70-100); Sodium 132 mmol/L (133-145)
[2017-04-29 10:51] LABS: Anion Gap 9 mmol/L (2-11)
[2017-04-29 11:28] LABS: Mean Corpuscular HGB Conc 33 g/dl (31-36); Mean Corpuscular Hemoglobin 30 pg (27-31); Mean Corpuscular Volume 91 fL (80-97); Mean Platelet Volume 10 um3 (7.4-10.4); Red Blood Count 3.17 10^6/ul (4.0-5.4); Red Cell Distribution Width 14 % (10.5-15); White Blood Count 10.1 10^3/ul (3.5-10.8)
--- NOTE | 2017-04-29 12:07 | RAD ---
INDICATION: Hypoxia COMPARISON: April 20, 2017 TECHNIQUE: An AP portable view obtained at 100 hours is submitted. FINDINGS: Bones/Soft Tissues: There are no acute bony findings. Cardiomediastinal: The cardiomediastinal silhouette is normal. The interstitium is slightly more prominent but this may be related to AP technique. Lungs: There are no infiltrates. Pleura: There are no pleural effusions. Other: None IMPRESSION: NO ACTIVE DISEASE.
[2017-04-29] MEDS ORDERED: NS 0.9% 500 ML BAG* 500 ML IV ONE (13:00)
[2017-04-29] MEDS ORDERED: Acetaminophen TAB* 325 MG PO SCH (13:00)
[2017-04-29] MEDS ORDERED: Ketorolac INJ* 30 MG/ML 1 ML VIAL IV PUSH ONE (13:20)
[2017-04-29] MEDS ORDERED: Cyclobenzaprine TAB* 10 MG PO ONE (13:21)
[2017-04-29] MEDS: Acetaminophen TAB* 325 MG PO SCH ×2 (16:04→23:10)
[2017-04-29] MEDS ORDERED: traMADol TAB* 50 MG PO PRN (16:28)
[2017-04-29] MEDS ORDERED: oxyCODONE/Acetamin 5/325 MG* TAB PO PRN (16:29)
--- NOTE | 2017-04-29 16:31 | PN ---
Hospitalist Progress Note Patient re-evaluated. HR now in 80s, no further tachycardia. Patient still drowsy but more responsive and voiding appropriately. Suspect patient is sensitive to opioids, which are likely contributing to her urinary retention and drowsiness. Continue standing Tylenol. Will add prn Flexeril. Recommend 1 tab Percocet and can trial tramadol, which she may tolerate better. Continue to encourage IS.
[2017-04-29] MEDS ORDERED: Cyclobenzaprine TAB* 10 MG PO PRN (16:32)
[2017-04-29] MEDS ORDERED: Warfarin TAB(*) 4 MG PO ONE (17:00)
[2017-04-30] MEDS: Acetaminophen TAB* 325 MG PO SCH (06:28)
[2017-04-30 06:31] LABS: Hematocrit 25 % (35-47); Hemoglobin 8.3 g/dl (12.0-16.0)
[2017-04-30] MEDS: clonazePAM TAB(*) 0.5 MG PO SCH (08:29)
[2017-04-30] MEDS: Magnesium Hydroxide LIQ* 30 ML UDC PO PRN (08:29)
[2017-04-30] MEDS: Docusate CAP* 100 MG PO SCH (08:29)
[2017-04-30] MEDS: Oxybutynin XL TAB* 5 MG PO SCH (08:30)
[2017-04-30] MEDS: Insulin LISPRO* 1 UNITS UNIT SUBCUT SCH (08:30)
[2017-04-30] MEDS: Atorvastatin* 10 MG TAB PO SCH (08:30)
[2017-04-30 08:39] VITALS: BP 116/50
--- NOTE | 2017-04-30 09:53 | PN ---
Progress Note - Progress Note Date of Service: 04/30/17 SOAP: Subjective: 87 y/o female s/p R DARON by Dr. Mccarthy 04/27/2017. Patient reports increased pain with movement, was seen for urinary retention, AMS likely due to narcotics and had dosages decreased. Patient otherwise reports feeling well, mentally alert. VSS, mild tachy overnight. Objective: General- Well appearing, NAD, MSK- Incision C/I, minimal dried blood seen on gauze, minimal erythema distal incision. Minimal swelling R thigh, + PF/ DF b/l, PT pulses 2+ b/l, mild non- pitting edema b/l LE's. Neg HOmans sign. Vital Signs Temp 99.0 F 04/30/17 08:27 Pulse 107 04/30/17 08:27 Resp 16 04/30/17 08:35 BP 116/50 04/30/17 08:27 Pulse Ox 94 04/30/17 08:35 Intake & Output 04/29/17 04/30/17 04/30/17 18:59 06:59 18:59 Intake Total 1768 1502 Output Total 400 450 Balance 1368 1052 Intake: IV Fluids 1768 992 LR 1268 992 ns 500 Oral 510 Output: Urine 400 450 Other: # Bowel Movements 0 Laboratory Results - last 24 hr 04/29/17 04/29/17 04/29/17 06:24 06:24 11:04 WBC 10.1 RBC 3.17 L Hgb Hct MCV 91 MCH 30 MCHC 33 RDW 14 Plt Count 234 MPV 10 INR (Anticoag Therapy) Sodium 132 L Potassium TNP 4.5 Chloride 102 Carbon Dioxide 21 L Anion Gap 9 BUN 29 H Creatinine 1.04 H Est GFR ( Amer) 64.3 Est GFR (Non-Af Amer) 50.0 BUN/Creatinine Ratio 27.9 H Glucose 137 H POC Glucose (mg/dL) Lactic Acid Calcium 8.2 L 04/29/17 04/29/17 04/29/17 11:28 12:50 16:50 WBC RBC Hgb Hct MCV MCH MCHC RDW Plt Count MPV INR (Anticoag Therapy) Sodium Potassium Chloride Carbon Dioxide Anion Gap BUN Creatinine Est GFR ( Amer) Est GFR (Non-Af Amer) BUN/Creatinine Ratio Glucose POC Glucose (mg/dL) 132 H 137 H Lactic Acid 0.7 Calcium 06/22/17 06/23/17 06/23/17 20:37 05:34 05:34 WBC RBC Hgb 8.3 L Hct 25 L MCV MCH MCHC RDW Plt Count MPV INR (Anticoag Therapy) 4.22 H Sodium Potassium Chloride Carbon Dioxide Anion Gap BUN Creatinine Est GFR ( Amer) Est GFR (Non-Af Amer) BUN/Creatinine Ratio Glucose POC Glucose (mg/dL) 128 H Lactic Acid Calcium Assessment: 87 y/o female s/p R DARON by Dr. Mccarthy 04/27/2017. Plan: - DVT prophylaxis- INR supratheraputic today- 4.2, hold coumadin, d/c lovenox. - Conitnue PT/ OT - D/c today to PMRU - f/u with DR. Mccarthy within 10 days Active Medications Generic Name Dose Route Start Last Admin Trade Name Freq PRN Reason Stop Dose Admin Acetaminophen 975 mg 04/29/17 15:00 04/30/17 06:28 Tylenol Tab* PO 975 mg Q8H [facility]LENE Administration Atorvastatin Calcium 10 mg 04/28/17 09:00 04/30/17 08:30 Lipitor* PO 10 mg QAM CHARLENE Administration Protocol Bisacodyl 10 mg 04/27/17 13:14 Dulcolax Supp* [place] DAILY PRN constipation Citalopram Hydrobromide 10 mg 04/27/17 21:00 04/29/17 20:38 Celexa Tab* PO 10 mg BEDTIME [facility] Administration Clonazepam 0.5 mg 04/27/17 21:00 04/30/17 08:29 Klonopin Tab(*) PO 0.5 mg BID [facility]LENE Administration Cyclobenzaprine HCl 5 mg 04/29/17 16:32 Flexeril Tab* PO TID PRN SPASMS - MUSCLE Dextrose 12.5 gm 04/27/17 16:06 D50w Syringe 50 Ml* IV PUSH .FOR FS < 60 - SS PRN FS < 60 Diphenhydramine HCl 12.5 mg 04/27/17 13:14 04/28/17 04:31 Benadryl Iv* IV 12.5 mg Q6H PRN Administration PRURITIS Docusate Sodium 100 mg 04/27/17 21:00 04/30/17 08:29 Colace Cap* PO 100 mg BID [facility]LENE Administration Insulin Human Lispro 0 units 04/27/17 16:30 04/30/17 08:30 Humalog* SUBCUT 2 units AC [facility]E Administration Protocol Lactulose 30 ml 04/27/17 13:14 Lactulose* PO Q6H PRN constipation Magnesium Hydroxide 30 ml 04/27/17 13:14 04/30/17 08:29 Milk Of Magnesia Liq* PO 30 ml Q6H PRN Administration constipation Morphine Sulfate 2 mg 04/28/17 02:00 Morphine Inj (Syringe)* IV Q2H PRN PAIN Ondansetron HCl 4 mg 04/28/17 02:00 Zofran Inj* IV Q6H PRN nausea Oxybutynin Chloride 10 mg 04/28/17 09:00 04/30/17 08:30 Ditropan Xl Tab* PO 10 mg QAM [facility]LENE Administration Protocol Oxycodone/Acetaminophen 1 tab 04/29/17 16:29 Percocet 5/325 Tab* PO Q4H PRN PAIN Pharmacy Profile Note 1 note 04/30/17 11:13 Scopolomine Patch Remove* PATCH OFF 04/30/17 11:14 Q72H ONE Pharmacy Profile Note 1 note 04/29/17 17:00 04/29/17 16:46 Coumadin Daily Reminder* FOLLOW UP 1 note 1700 [facility]LENE Administration Polyethylene Glycol/Electrolytes 17 gm 04/27/17 13:14 Miralax* PO DAILY PRN Constipation Scopolamine 1 patch 04/27/17 11:15 04/27/17 18:30 Transderm-Scop 1.5 Mg Patch* TRANSDERM 1 patch Q72H PRN Administration nausea Tramadol HCl 50 mg 04/29/17 16:28 Ultram* PO Q6H PRN PAIN
--- NOTE | 2017-04-30 09:56 | PN ---
Subjective Date of Service: 04/30/17 Interval History: Patient seen and examined at bedside. More alert and oriented today. Pain better controlled. No acute complaint. Family History: Unchanged from Admission Social History: Unchanged from Admission Past Medical History: Unchanged from Admission Objective Active Medications: Acetaminophen (Tylenol Tab*) 975 mg PO Q8H [facility] Last Admin: 04/30/17 06:28 Dose: 975 mg Atorvastatin Calcium (Lipitor*) 10 mg PO QAM [facility] PRN Reason: Protocol Last Admin: 04/30/17 08:30 Dose: 10 mg Bisacodyl (Dulcolax Supp*) 10 mg WA DAILY PRN PRN Reason: constipation Citalopram Hydrobromide (Celexa Tab*) 10 mg PO BEDTIME [facility] Last Admin: 04/29/17 20:38 Dose: 10 mg Clonazepam (Klonopin Tab(*)) 0.5 mg PO BID [facility] Last Admin: 04/30/17 08:29 Dose: 0.5 mg Cyclobenzaprine HCl (Flexeril Tab*) 5 mg PO TID PRN PRN Reason: SPASMS - MUSCLE Dextrose (D50w Syringe 50 Ml*) 12.5 gm IV PUSH .FOR FS < 60 - SS PRN PRN Reason: FS < 60 Diphenhydramine HCl (Benadryl Iv*) 12.5 mg IV Q6H PRN PRN Reason: PRURITIS Last Admin: 04/28/17 04:31 Dose: 12.5 mg Docusate Sodium (Colace Cap*) 100 mg PO BID [facility] Last Admin: 04/30/17 08:29 Dose: 100 mg Insulin Human Lispro (Humalog*) 0 units SUBCUT AC [facility] PRN Reason: Protocol Last Admin: 04/30/17 08:30 Dose: 2 units Lactulose (Lactulose*) 30 ml PO Q6H PRN PRN Reason: constipation Magnesium Hydroxide (Milk Of Magnesia Liq*) 30 ml PO Q6H PRN PRN Reason: constipation Last Admin: 04/30/17 08:29 Dose: 30 ml Morphine Sulfate (Morphine Inj (Syringe)*) 2 mg IV Q2H PRN PRN Reason: PAIN Ondansetron HCl (Zofran Inj*) 4 mg IV Q6H PRN PRN Reason: nausea Oxybutynin Chloride (Ditropan Xl Tab*) 10 mg PO QAM [facility] PRN Reason: Protocol Last Admin: 04/30/17 08:30 Dose: 10 mg Oxycodone/Acetaminophen (Percocet 5/325 Tab*) 1 tab PO Q4H PRN PRN Reason: PAIN Pharmacy Profile Note (Scopolomine Patch Remove*) 1 note PATCH OFF Q72H ONE Stop: 04/30/17 11:14 Pharmacy Profile Note (Coumadin Daily Reminder*) 1 note FOLLOW UP 1700 CHARLENE Last Admin: 04/29/17 16:46 Dose: 1 note Polyethylene Glycol/Electrolytes (Miralax*) 17 gm PO DAILY PRN PRN Reason: Constipation Scopolamine (Transderm-Scop 1.5 Mg Patch*) 1 patch TRANSDERM Q72H PRN PRN Reason: nausea Last Admin: 04/27/17 18:30 Dose: 1 patch Tramadol HCl (Ultram*) 50 mg PO Q6H PRN PRN Reason: PAIN Vital Signs 04/29/17 04/29/17 04/29/17 10:25 11:26 11:55 Temperature 98.3 F Pulse Rate 92 Respiratory 18 16 Rate Blood Pressure 86/38 (mmHg) O2 Sat by Pulse 98 Oximetry 04/29/17 04/29/17 04/29/17 12:13 13:26 13:37 Temperature Pulse Rate Respiratory 18 18 Rate Blood Pressure 90/42 (mmHg) O2 Sat by Pulse Oximetry 04/29/17 04/29/17 04/29/17 14:25 14:26 15:27 Temperature 98.0 F Pulse Rate 101 85 Respiratory 14 Rate Blood Pressure 121/45 102/43 (mmHg) O2 Sat by Pulse 90 93 98 Oximetry 04/29/17 04/29/17 04/29/17 15:37 16:00 19:36 Temperature 97.3 F Pulse Rate 94 Respiratory 16 14 Rate Blood Pressure 101/40 (mmHg) O2 Sat by Pulse 98 95 Oximetry 04/29/17 04/29/17 04/29/17 20:57 21:46 23:46 Temperature Pulse Rate Respiratory 15 17 15 Rate Blood Pressure (mmHg) O2 Sat by Pulse Oximetry 04/29/17 04/30/17 04/30/17 23:50 00:00 04:18 Temperature 98.5 F 98.3 F Pulse Rate 102 99 Respiratory 14 16 Rate Blood Pressure 131/47 152/65 (mmHg) O2 Sat by Pulse 95 95 99 Oximetry 04/30/17 04/30/17 04/30/17 08:27 08:29 08:35 Temperature 99.0 F Pulse Rate 107 Respiratory 16 16 16 Rate Blood Pressure 116/50 (mmHg) O2 Sat by Pulse 91 94 Oximetry Oxygen Devices in Use Now: None Appearance: Elderly female, OOB to chair, NAD Eyes: PERRLA Ears/Nose/Mouth/Throat: Mucous Membranes Moist Neck: NL Appearance and Movements; NL JVP Respiratory: Symmetrical Chest Expansion and Respiratory Effort, Clear to Auscultation Cardiovascular: NL Sounds; No Murmurs; No JVD, RRR Abdominal: NL Sounds; No Tenderness; No Distention Neurological: Alert and Oriented x 3 Lines/Tubes/Other Access: Clean, Dry and Intact Peripheral IV Result Diagrams: 04/30/17 05:34 04/29/17 11:04 Assess/Plan/Problems-Billing Assessment: 87 yo female with a PMH of OA, DM, HTN, HLD, depression, and urinary incontinence who is s/p right total hip replacement on 04/27 - Patient Problems (1) Status post total hip replacement, right Code(s): Z96.641 - PRESENCE OF RIGHT ARTIFICIAL HIP JOINT Comment: POD #3, management per ortho PT/OT HH stable Pain management (2) Tachycardia Code(s): R00.0 - TACHYCARDIA, UNSPECIFIED Comment: Improved, suspect pain and anxiety were primary causes (3) Urinary retention Code(s): R33.9 - RETENTION OF URINE, UNSPECIFIED Comment: Resolved Suspect secondary to opioid use (4) Diabetes mellitus Code(s): E11.9 - TYPE 2 DIABETES MELLITUS WITHOUT COMPLICATIONS Comment: Controlled. Continue Lispro SSI Hold home metformin. (5) HTN (hypertension) Code(s): I10 - ESSENTIAL (PRIMARY) HYPERTENSION Comment: Normotensive with occasional hypotension Improved, can resume ARB (6) HLD (hyperlipidemia) Code(s): E78.5 - HYPERLIPIDEMIA, UNSPECIFIED Comment: Continue statin. (7) Urinary incontinence Code(s): R32 - UNSPECIFIED URINARY INCONTINENCE Comment: Continue oxybutinin. (8) Depression Code(s): F32.9 - MAJOR DEPRESSIVE DISORDER, SINGLE EPISODE, UNSPECIFIED Comment: Continue citalopram. (9) DVT prophylaxis Comment: Per ortho Status and Disposition: Inpatient admit. Dispo per ortho. D/c to [facility]
[2017-04-30] MEDS ORDERED: Scopolomine PATCH Remove* 1 NOTE MISC PATCH OFF ONE (11:13)
--- NOTE | 2017-05-01 09:47 | DS ---
DISCHARGE SUMMARY: DATE OF ADMISSION: 04/27/17 DATE OF DISCHARGE: 04/30/17 CHIEF COMPLAINT: 1. Right hip pain. 2. Hypertension. 3. Hypercholesterolemia. 4. Diabetes. 5. Depression. 6. Anxiety. 7. Diverticulitis. DISCHARGE DIAGNOSES: 1. Status post right total hip arthroplasty. 2. Hypertension. 3. Hypercholesterolemia. 4. Diabetes. 5. Depression. 6. Anxiety. 7. Diverticulitis. PROCEDURE: Right total hip arthroplasty. CONSULTATIONS: 1. Physical Therapy. 2. Occupational Therapy. 3. Medicine. BRIEF HISTORY: Ms. Clemnet is a very pleasant 87-year-old female with severe end- stage degenerative osteoarthritis of the right hip, who failed conservative treatment and elected to undergo a right total hip arthroplasty on 04/27/[address] Mccarthy. HOSPITAL COURSE: Ms. Clement was admitted to [facility] on 04/27/17, where she underwent a right total hip arthroplasty. Postoperatively, she recovered in the Surgical Short-Stay Unit. On postoperative day 2, the Coelho was removed and she was voiding on her own without difficulty. She was started on p.o. Percocet and her home medications; however, was transitioned to Flexeril , Ultram, and low- dose Percocet due to mental status changes and urinary retention. Her labs and vital signs remained stable. She was able to weight bear as tolerated on the right lower extremity. She advanced appropriately with physical therapy and occupational therapy. Her DVT prophylaxis was managed with Lovenox and Coumadin until she reached a therapeutic INR. By postoperative day 3, she was orthopedically and medically stable for discharge to go to [facility]. PHYSICAL EXAMINATION: General: Well-appearing, in no acute distress, alert and oriented. Vital signs on the date of discharge: Temperature 99.0, pulse 107, respirations 16, blood pressure 116/50, and pulse oxygenation 94. Musculoskeletal: The incision was clean, dry with a minimal amount of blood seen on the gauze and more erythema to distal incision. Minimal thigh swelling on the right side. Positive dorsiflexion and plantarflexion bilaterally. Posterior tibial pulses 2+ bilaterally. Mild nonpitting edema, bilateral lower extremities. Negative Homans sign bilaterally. DIAGNOSTIC STUDIES/LAB DATA: Laboratory data on the date of discharge include H and H of 8.3 and 24 with an INR of 4.22. Radiographs, postoperative films show a right hip arthroplasty in appropriate position. DISCHARGE MEDICATIONS: 1. Tylenol 975 mg p.o. q.8 hours p.r.n. 2. Dulcolax suppository 10 mg daily p.r.n. 3. Cyclobenzaprine 5 mg p.o. t.i.d. p.r.n. 4. Dulcolax 100 mg p.o. b.i.d. 5. Percocet 5/325 1 tablet every 4 hours as needed for pain. 6. Ultram 50 mg 1 tablet every 6 hours as needed for pain. 7. Aspirin 81 mg p.o. daily. 8. Calcium/vitamin B supplementation 1 tablet a.m. daily. 9. Vitamin D 1000 international units p.o. daily. 10. Celexa 10 mg p.o. q.h.s. 11. Furosemide per home dosage. 12. Benicar 20 mg p.o. b.i.d. 13. Crestor 5 mg p.o. q.a.m. 14. Detrol LA 4 mg p.o. q.a.m. 15. Coumadin 2 mg tablets 1 to 3 tablets daily at 5 p.m. per physician's instructions. 16. Clonazepam 0.5 mg p.o. b.i.d. p.r.n. 17. Glucophage 500 mg p.o. daily. CONDITION ON DISCHARGE: Stable. DISCHARGE INSTRUCTIONS: Ms. Clement is a very pleasant 87-year-old female, status post right total hip arthroplasty, which was uncomplicated who has been discharged today to [facility]. Her labs and vital signs were stable. She will restart her home medications. She will hold her Coumadin for the next 3 days, will have an INR draw on Wednesday or per [facility] standard. She will remain weightbearing as tolerated on the right lower extremity. She will have physical therapy at [facility] and she will take Percocet and Ultram for pain control and Colace up to 3 times a day for constipation. She will follow up with Dr. Mccarthy in approximately 10 days for incision check and suture removal. She was instructed to contact the office should she develop any redness, erythema, drainage around the incision site. BECCA LOGAN [id number]/[facility] #: [id number] CINDY
== END 2017-04-30 10:30 | DRG 470 ==
LOC: AA 08:26 → SSU 13:14
PROVIDERS: ADMIT Orthopaedic Surgery Adult Reconstructive Orthopaedic Surgery; ATTEND Orthopaedic Surgery Adult Reconstructive Orthopaedic Surgery
PROC: 0SR904A Replacement of Right Hip Joint with Ceramic on Polyethylene Synthetic Substitute, Uncemented, Open Approach (ICD-10-PCS; principal; 2017-04-27 09:30)
DX: M16.11 Unilateral primary osteoarthritis, right hip (principal); I95.9 Hypotension, unspecified; K57.92 Diverticulitis of intestine, part unspecified, without perforation or abscess without bleeding; I10 Essential (primary) hypertension; E78.00 Pure hypercholesterolemia, unspecified; E11.9 Type 2 diabetes mellitus without complications; F32.9 Major depressive disorder, single episode, unspecified; F41.9 Anxiety disorder, unspecified; Z96.651 Presence of right artificial knee joint; R32 Unspecified urinary incontinence; R00.0 Tachycardia, unspecified; R33.9 Retention of urine, unspecified; R79.1 Abnormal coagulation profile; T45.515A Adverse effect of anticoagulants, initial encounter; E78.5 Hyperlipidemia, unspecified; R41.82 Altered mental status, unspecified; T40.2X5A Adverse effect of other opioids, initial encounter; Z79.82 Long term (current) use of aspirin; Z90.710 Acquired absence of both cervix and uterus; Z98.1 Arthrodesis status; Z90.49 Acquired absence of other specified parts of digestive tract; Z88.6 Allergy status to analgesic agent; Z88.8 Allergy status to other drugs, medicaments and biological substances; Z83.3 Family history of diabetes mellitus; Z80.1 Family history of malignant neoplasm of trachea, bronchus and lung; Z79.01 Long term (current) use of anticoagulants; Z79.84 Long term (current) use of oral hypoglycemic drugs
CPT/HCPCS: 36415; 71010; 72170; 80048; 83605; 85014; 85018; 85027; 85610; 93005; 94760; A9270-GY; C1713; C1776; J0690; J1100; J1200; J1650; J1885; J2250; J2300; J2405; J2704; J3010

== ENCOUNTER 2017-04-30 09:52 | Inpatient (IN) | payer MEDICARE, OTHER ==
[2017-04-30] MEDS ORDERED: traMADol TAB* 50 MG ONE (11:49)
[2017-04-30] MEDS ORDERED: Magnesium Hydroxide LIQ* 30 ML UDC PO PRN (12:04)
--- NOTE | 2017-04-30 12:55 | PMRUTEAM ---
PMRU: Goals Current Status: Physical Therapy: Current Status Bed Mobility Assistance Mod to max assist Transfer Moblility Assistance min assist x 2 Transfer/Bed Mobility Rolling Walker Recommended Devices Ambulation Assistance Contact guard x 2 Ambulation Assistive Devices Rolling Walker Stairs Assistance NT Stairs Recommended Devices Straight Cane,One Rail Number of Stairs 4 Occupational Therapy: Current Status Upper Body Dressing Supervision Lower Body Dressing Mod Assist Bathing Min Assist,2 Person Assist Toileting Contact Guard Assist Toilet Transfer Contact Guard Assist Shower Transfer Contact Guard Assist,2 Person Assist Eating Independent Instrumental ADL Dependent for IADLs. Goals: Physical Therapy: Initial Goals Bed Mobility Assistance Independent Transfer Mobility Assistance Independent Transfer/Bed Mobility Rolling Walker Recommended Devices Ambulation Independent Ambulation Recommended Devices Rolling Walker Ambulation Distance 150 Stairs Assistance Independent Stair Recommended Devices Straight Cane,One Rail Number of Stairs 4 Home Exercise Program Independent Assistance Physical Therapy: Updated Goals Transfer/Bed Mobility Rolling Walker Recommended Devices Occupational Therapy: Initial Goals Goals to be Completed in (Days 7-10 ) Upper Body Bathing Routine Independent Lower Body Bathing Routine Modified Independent with Upper Body Dressing Routine Independent Lower Body Dressing Routine Modified Independent with Toilet Hygeine and Clothing Modified Independent with Management Routine Toilet Transfer Routine Modified Independent with Step-In Shower Transfer Modified Independent with Routine Tub Transfer Routine Modified Independent with Functional Transfers for ADL Modified Independent with Grooming Routine Independent Feeding Routine Independent Light Housekeeping Tasks Modified Independent with Care Plan: Care Plan Mobility- Improve/Maintain Start: 04/30/17 11:52 Freq: DAILY Status: Active Target: Activity Type Activity Date Activity User E-Sign Co-Sign Detail Recorded Client Recorded Date Recorded By Document 04/30/17 11:52 [id number] 04/30/17 11:53 [id number] 04/30/17 11:52 [facility] Outcome: Mobility Physical Therapy Evaluation and Yes Treatment Activity OOB with Assistance Yes WBAT Yes Device Yes Assistance Yes Patient to be seen 5x/wk for 60-120 min/ Therex day for: Mobility Training Gait Training Balance Other Therapy Comment Hip precautions Outcome/Goals Maintain/ Achieve Baseline Mobility Status Improve Mobility Status Demonstrates Proper Use of Assistive Devices Free from Complications of Immobility Bed Mobility Yes: Independent Transfers Yes: Modified independent with RW Gait x ft Yes: Modified independent 150 ' with RW W/C Mobility x ft No Up/Down Stairs Yes: Independent 4 steps 1 rail, sc With HEP Yes Goal Comment Recall 3/3 hip precautions Medicine Note: Length of Stay: 9 days Anticipated Discharge Destination: Tentative Discharge Date: May 10 2017 Discharged to: Home
[2017-04-30] MEDS ORDERED: Dextrose 50% Syringe 50 ML* 25 GM/50 ML SYRINGE IV PUSH PRN (14:37)
[2017-04-30] MEDS ORDERED: HYDROcodone/ACETAMIN 5-325 MG* 1 TAB PO PRN (14:38)
[2017-04-30] MEDS: Insulin LISPRO* 1 UNITS UNIT SUBCUT SCH ×2 (17:46→21:06)
[2017-04-30] MEDS: Senna TAB PO SCH (21:07)
[2017-04-30] MEDS: Citalopram TAB* 10 MG PO SCH (21:07)
[2017-04-30] MEDS: Docusate CAP* 100 MG PO SCH (21:07)
[2017-04-30] MEDS: clonazePAM TAB(*) 0.5 MG PO SCH (21:08)
[2017-04-30] MEDS: traMADol TAB* 50 MG PO PRN (21:12)
--- NOTE | 2017-05-01 04:02 | HP ---
ADMISSION HISTORY AND PHYSICAL: DATE OF ADMISSION: 04/30/17 REASON FOR ADMISSION: Right total hip replacement. HISTORY OF PRESENT ILLNESS: Aiyana Clement is an 87-year-old female. She has a history of longstanding right leg pain. She had seen Dr. Amirah Mccarthy. X- rays were done, which showed significant advanced arthritis of the right hip. It was decided the best course of action would be for her to have a total hip replacement. She saw Dr. Quiñones prior to surgery for medical clearance. She was cleared for surgery. She was taken to the operating room on 04/27/17. She underwent a right total hip replacement. Postoperatively, her course was benign. She was started on Coumadin for DVT prophylaxis. Postop, she did have a consultation with the hospitalist regarding her diabetes as well as mental status changes. She also had some difficulties with urinary retention. It was felt that the change in mental status was secondary to narcotics. She also had mild tachycardia noted. The patient was felt to be medically stable. She was felt to have physical therapy and occupational therapy needs. She is now being admitted for inpatient rehab, so she might return to independent living. PAST MEDICAL HISTORY: Significant for aforementioned diabetes. She has a history of hypertension, stress incontinence and has had diverticulitis. She has had a lumbar fusion in the past as well as a right total knee replacement. CURRENT MEDICATIONS: Include: 1. Lipitor. 2. Celexa. 3. Klonopin. 4. Ditropan. 5. Insulin. ALLERGIES: Include LISINOPRIL, NAPROXEN, and NIACIN. SOCIAL HISTORY: She lives alone in a two-story house, but she stays mainly on the first floor. She has a son and daughter who live locally. Prior to admission, she was independent with activities of daily living. She is a nonsmoker, nondrinker. REVIEW OF SYSTEMS: The patient reports some difficulty with constipation. PHYSICAL EXAMINATION VITAL SIGNS: The patient's temperature is 98.2, blood pressure is 120/49, pulse is 97, and respirations are 16. HEENT: Her extraocular movements are intact. Tongue is midline. NECK: Neck is supple. LUNGS: Sounded clear to auscultation bilaterally. HEART: Heart sounds are regular, S1 and S2 are audible. ABDOMEN: Soft and nontender. EXTREMITIES: Her extremities, her right hip has a wound, which is clean and dry. Peripheral pulses . NEUROLOGIC: She is awake, alert, and oriented. Muscle strength is about 3/5 in the right leg secondary to pain, otherwise 5/5. FUNCTIONAL EXAM: She transfers with min assist. ASSESSMENT: Right total hip replacement. PLAN: Integrate her into a comprehensive and therapeutic rehab program with the following goals: 1. Physical Therapy will work with the patient. They are going to work on functional transfer training, ambulation training with a walker. 2. Occupational Therapy will see the patient, work on her activities of daily living including toileting and toilet transfers. 3. Coumadin for DVT prophylaxis. 4. We are going to restart her metformin for her diabetes tomorrow. We will continue sliding scale insulin. 5. Adequate analgesia. 6. Her bowels will be regulated. 7. We will monitor her for tachycardia. We will repeat an EKG if necessary. 8. Mainframe Programmer will be closely involved to make sure that any services and equipment the patient requires are in place prior to discharge. 9. Family training as appropriate. 10. Advance directives: The patient is a full code. 11. Home with appropriate services. ESTIMATED LENGTH OF STAY: Ten days. [id number]/[facility] #: [id number] CINDY
[2017-05-01] MEDS: metFORMIN* 500 MG TAB PO SCH ×2 (07:42→17:28)
[2017-05-01] MEDS: Docusate CAP* 100 MG PO SCH ×2 (07:42→21:01)
[2017-05-01] MEDS: clonazePAM TAB(*) 0.5 MG PO SCH ×2 (07:42→21:01)
[2017-05-01] MEDS: Insulin LISPRO* 1 UNITS UNIT SUBCUT SCH ×4 (07:43→21:03)
[2017-05-01] MEDS: Oxybutynin XL TAB* 5 MG PO SCH (08:14)
[2017-05-01] MEDS: traMADol TAB* 50 MG PO PRN ×2 (09:29→16:10)
[2017-05-01] MEDS ORDERED: Furosemide TAB* 20 MG PO ONE (09:45)
[2017-05-01] MEDS: Atorvastatin* 10 MG TAB PO SCH (17:28)
[2017-05-01] MEDS: Senna TAB PO SCH (21:01)
[2017-05-01] MEDS: Citalopram TAB* 10 MG PO SCH (21:01)
[2017-05-02 06:35] LABS: Hematocrit 23 % (35-47); Hemoglobin 7.9 g/dl (12.0-16.0); Mean Corpuscular HGB Conc 34 g/dl (31-36); Mean Corpuscular Hemoglobin 30 pg (27-31); Mean Corpuscular Volume 89 fL (80-97); Mean Platelet Volume 8 um3 (7.4-10.4); Red Cell Distribution Width 14 % (10.5-15); White Blood Count 9.2 10^3/ul (3.5-10.8)
[2017-05-02] MEDS: Oxybutynin XL TAB* 5 MG PO SCH (09:27)
[2017-05-02] MEDS: metFORMIN* 500 MG TAB PO SCH ×2 (09:27→16:54)
[2017-05-02] MEDS: Furosemide TAB* 20 MG PO SCH (09:28)
[2017-05-02] MEDS: Docusate CAP* 100 MG PO SCH ×2 (09:28→21:06)
[2017-05-02] MEDS: clonazePAM TAB(*) 0.5 MG PO SCH ×2 (09:28→21:00)
[2017-05-02] MEDS: traMADol TAB* 50 MG PO PRN ×2 (09:28→16:54)
[2017-05-02] MEDS: Insulin LISPRO* 1 UNITS UNIT SUBCUT SCH ×4 (09:34→21:07)
[2017-05-02] MEDS: Acetaminophen TAB* 325 MG PO PRN ×2 (13:11→21:00)
[2017-05-02] MEDS: Atorvastatin* 10 MG TAB PO SCH (16:53)
[2017-05-02] MEDS: Citalopram TAB* 10 MG PO SCH (21:00)
[2017-05-02] MEDS: Senna TAB PO SCH (21:07)
[2017-05-03] MEDS: traMADol TAB* 50 MG PO PRN ×2 (05:07→17:15)
[2017-05-03] MEDS: Oxybutynin XL TAB* 5 MG PO SCH (07:56)
[2017-05-03] MEDS: metFORMIN* 500 MG TAB PO SCH ×2 (07:57→17:15)
[2017-05-03] MEDS: Furosemide TAB* 20 MG PO SCH (07:57)
[2017-05-03] MEDS: Docusate CAP* 100 MG PO SCH ×2 (07:59→20:55)
[2017-05-03] MEDS: clonazePAM TAB(*) 0.5 MG PO SCH ×2 (07:59→20:11)
[2017-05-03] MEDS: Insulin LISPRO* 1 UNITS UNIT SUBCUT SCH ×4 (08:00→20:55)
[2017-05-03 10:04] LABS: Hematocrit 27 % (35-47); Mean Corpuscular HGB Conc 34 g/dl (31-36); Mean Corpuscular Hemoglobin 31 pg (27-31); Mean Corpuscular Volume 90 fL (80-97); Mean Platelet Volume 7 um3 (7.4-10.4); Red Blood Count 2.94 10^6/ul (4.0-5.4); Red Cell Distribution Width 14 % (10.5-15); White Blood Count 8.2 10^3/ul (3.5-10.8)
[2017-05-03 10:21] LABS: Albumin 3.3 g/dL (3.2-5.2); BUN/Creatinine Ratio 19.1 (8-20); Calcium 8.8 mg/dL (8.6-10.3); EGFR African American 72.3 (>60); EGFR Non-African American 56.2 (>60); Globulin 2.9 g/dL (2-4); Potassium 4.2 mmol/L (3.5-5.0); Total Bilirubin 0.6 mg/dL (0.2-1.0); Total Protein 6.2 g/dL (6.4-8.9)
[2017-05-03] MEDS: Acetaminophen TAB* 325 MG PO PRN ×2 (10:23→20:50)
[2017-05-03] MEDS: Atorvastatin* 10 MG TAB PO SCH (17:15)
[2017-05-03] MEDS: Citalopram TAB* 10 MG PO SCH (20:10)
[2017-05-03] MEDS: Senna TAB PO SCH (20:12)
[2017-05-04] MEDS: Insulin LISPRO* 1 UNITS UNIT SUBCUT SCH ×4 (08:13→21:42)
[2017-05-04] MEDS: clonazePAM TAB(*) 0.5 MG PO SCH ×2 (08:24→21:12)
[2017-05-04] MEDS: Oxybutynin XL TAB* 5 MG PO SCH (08:24)
[2017-05-04] MEDS: Docusate CAP* 100 MG PO SCH ×2 (08:24→21:12)
[2017-05-04] MEDS: Furosemide TAB* 20 MG PO SCH (08:25)
[2017-05-04] MEDS: traMADol TAB* 50 MG PO PRN (08:25)
[2017-05-04] MEDS: metFORMIN* 500 MG TAB PO SCH ×2 (08:25→17:06)
--- NOTE | 2017-05-04 12:39 | PMRUTEAM ---
PMRU: Goals Current Status: Nursing: Current Status Skin Deviations [Right Hip] Incision Skin Deviation Description [ ANUPAMA Right Hip] Drain Type [Right Hip] None Bladder Current Status Incontinent, helper changes brief Bowel Current Status Continent Nutrition Current Status Adequate, FS monitoring Medication Current Status pain manged with PRN Tramadol and tylenol Physical Therapy: Current Status Bed Mobility Assistance Supervision,Min Assist Transfer Moblility Assistance Supervision Transfer/Bed Mobility Rolling Walker Recommended Devices Ambulation Assistance Supervision Ambulation Assistive Devices Rolling Walker Number of Feet Patient 150' Ambulated Ambulation Comment Antalgic short step length reciprocal Stairs Assistance Supervision,Contact Guard Assist Stairs Recommended Devices Two Rails Number of Stairs 5 Occupational Therapy: Current Status Upper Body Dressing Supervision Lower Body Dressing Supervision Bathing Min Assist Toileting Supervision Toilet Transfer Supervision Shower Transfer Supervision Eating Independent Instrumental ADL Dependent for IADLs. Rec Therapy: Current Status Summary of Assessment and RT assessment complete and pt. is aware of Clinical Impression services. Tearful during conversation about her who June 2016. Open to continued leisure visits. Treatment Goals Pt. will engage in leisure activities while on the unit. Treatment Plan Provide RT services and encourage involvement. Consider structurer consult. Social Work: Current Status Discharge Plan return home with home care svs and family support Potential for Family Training pt's family is involved and supportive Anticipated Discharge Home Destination Discharge With home care svs and family support Goals: Physical Therapy: Initial Goals Bed Mobility Assistance Independent Transfer Mobility Assistance Independent Transfer/Bed Mobility Rolling Walker Recommended Devices Ambulation Independent Ambulation Recommended Devices Rolling Walker Ambulation Distance 150 Stairs Assistance Independent Stair Recommended Devices Straight Cane,One Rail Number of Stairs 4 Home Exercise Program Independent Assistance Physical Therapy: Updated Goals Bed Mobility Assistance Independent Transfer/Bed Mobility None,Rolling Walker Recommended Devices Ambulation Assistance Independent Ambulation Assistive Devices Rolling Walker Ambulation Distance (ft) 150 Stairs Assistance Independent Stairs Recommended Devices Straight Cane,One Rail Number of Stairs 5 Occupational Therapy: Initial Goals Goals to be Completed in (Days 7-10 ) Upper Body Bathing Routine Independent Lower Body Bathing Routine Modified Independent with Upper Body Dressing Routine Independent Lower Body Dressing Routine Modified Independent with Toilet Hygeine and Clothing Modified Independent with Management Routine Toilet Transfer Routine Modified Independent with Step-In Shower Transfer Modified Independent with Routine Tub Transfer Routine Modified Independent with Functional Transfers for ADL Modified Independent with Grooming Routine Independent Feeding Routine Independent Light Housekeeping Tasks Modified Independent with Nursing: Goals Bladder Goal pt to change brief independently Bowel Goal continent, independent care Nutrition Goal Adequate, able to monitor FS indepently and diet is well rounded Medication Goal self administration and knowledge of medications Social Work: Goals Discharge Plan return home with home care svs and family support Potential for Family Training pt's family is involved and supportive Anticipated Discharge Home Destination Discharge With home care svs and family support Care Plan: Care Plan ADL's - Improve/Maintain Start: 05/01/17 12:54 Freq: DAILY Status: Active Target: Activity Type Activity Date Activity User E-Sign Co-Sign Detail Recorded Client Recorded Date Recorded By Document 05/03/17 15:04 [id number] 05/03/17 15:05 [id number] 05/03/17 15:04 PMRU Outcome: ADL's/ADL Transfers Orders/Interventions Occupational Therapy Evaluation & Treatment Communication Tool in Patient Room Device Yes: RW, hip kit Address Deficits Secondary To: R hip replacement Patient to receive OT 5x/wk for 60-120 Therex min/day Self Care Management Group Therapy Neuromuscular ReEducation UE/LE ADL's with Assist Yes ADL Transfers with Assist Yes Toileting: Transfers,Clothing Management Yes ,Hygeine w/Assist Light Kitchen/Laundry w/Assist Yes Progression Toward Outcome/Goals Progressing Outcome/Goals Met Pt. able to complete ADL routine with CGA-S, and with adaptive equipment for lower body dressing. Pt. has improved with her ability to transfer with S -CGA. Coping/Psych-Improve/Maintain Start: 04/30/17 13:30 Freq: DAILY Status: Active Target: Activity Type Activity Date Activity User E-Sign Co-Sign Detail Recorded Client Recorded Date Recorded By Document 05/04/17 10:17 [id number] 05/04/17 10:18 [id number] 05/04/17 10:17 PMRU Outcome: Coping/Psychosocial Coping Outcome/Goals Verbalization of Acceptance of Rehab Admit Verbalization of Sense of Control Over Health Status Utilization of Appropriate Problem Solving Techniques Willingness to Participate in Treatment Plan and Basic Needs Utilization of Available Support Systems Psychosocial Outcome/Goals Demonstrates Knowledge of Healthy Coping Mechanisms Available Cooperate/ Participate in Plan Progression Toward Outcome/Goals - Progressing Coping Progression Toward Outcome/Goals - Progressing Psychosocial DVT Prophylaxis- Improve/Maintain Start: 04/30/17 13:30 Freq: DAILY Status: Complete Target: Activity Type Activity Date Activity User E-Sign Co-Sign Detail Recorded Client Recorded Date Recorded By Document 05/03/17 15:26 [id number] 05/03/17 15:30 [id number] 05/03/17 15:26 PMRU Outcome: DVT Prophylaxis Outcome/Goals Remains Free of DVT Complies with DVT Prophylaxis /Treatment TEDS Stockings on Every AM, Off at HS Outcome/Goals Met Remains Free of DVT Discharge Planning - Improve/Maintain Start: 04/30/17 13:30 Freq: DAILY Status: Active Target: Activity Type Activity Date Activity User E-Sign Co-Sign Detail Recorded Client Recorded Date Recorded By Document 05/04/17 10:17 [id number] 05/04/17 10:18 [id number] 05/04/17 10:17 PMRU Outcome: Discharge Planning Update Patient Family No Outcome/Goals Demonstrates Understanding of Discharge Plan Progression Toward Outcome/Goals Progressing Education-Improve/Maintain Start: 04/30/17 13:30 Freq: DAILY Status: Active Target: Activity Type Activity Date Activity User E-Sign Co-Sign Detail Recorded Client Recorded Date Recorded By Document 05/04/17 10:17 [id number] 05/04/17 10:18 [id number] 05/04/17 10:17 PMRU Outcome: Education Outcome/Goals Demonstrate/ Verbalize Understanding of Written Discharge Instructions Encourage Questions Progression Toward Outcome/Goals Progressing /GI-Improve/Maintain Start: 04/30/17 13:30 Freq: DAILY Status: Active Target: Activity Type Activity Date Activity User E-Sign Co-Sign Detail Recorded Client Recorded Date Recorded By Document 05/04/17 10:17 [id number] 05/04/17 10:18 [id number] 05/04/17 10:17 PMRU Outcome: Genitourinary/ Gastrointestinal Genitourinary- Outcome/Goals Remain Free of Hospital- Acquired UTI Gastrointestinal-Outcome/Goals Maintain/ Achieve Bowel Regularity in Accordance with Pt's Baseline Remain Free of Emesis Prevent Constipation Laxatives as Ordered Progression Toward Outcome/Goals - Progressing Progression Toward Outcome/Goals - GI Progressing Medication Administration Start: 04/30/17 13:30 Freq: DAILY Status: Active Target: Activity Type Activity Date Activity User E-Sign Co-Sign Detail Recorded Client Recorded Date Recorded By Document 05/04/17 10:17 [id number] 05/04/17 10:18 [id number] 05/04/17 10:17 PMRU Outcome: Medication Administration Assess Patient Knowledge/Teach Med Yes Education for all Meds Outcome/Goals Patient Independent with Medication Administration at Home Demonstrates Understanding Progression Towards Outcome/Goals Progressing Is Patient Going Home on Lovenox? No Metabolic Status- Improve/Maintain Start: 04/30/17 13:30 Freq: DAILY Status: Active Target: Activity Type Activity Date Activity User E-Sign Co-Sign Detail Recorded Client Recorded Date Recorded By Document 05/04/17 10:17 [id number] 05/04/17 10:18 [id number] 05/04/17 10:17 PMRU Outcome: Metabolic Status Have Fingersticks Been Ordered Yes Fingerstick Order Frequency AC & HS Outcome/Goals Maintain/ Improve Metabolic Status Demonstrate Knowledge of Prevention/ Treatment of Metabolic Imbalances Progression Toward Outcome/Goals Progressing Mobility- Improve/Maintain Start: 04/30/17 11:52 Freq: DAILY Status: Active Target: Activity Type Activity Date Activity User E-Sign Co-Sign Detail Recorded Client Recorded Date Recorded By Document 05/03/17 12:14 [id number] 05/03/17 12:14 [id number] 05/03/17 12:14 PMRU Outcome: Mobility Physical Therapy Evaluation and Yes Treatment Activity OOB with Assistance Yes WBAT Yes Device Yes Assistance Yes Patient to be seen 5x/wk for 60-120 min/ Therex day for: Mobility Training Gait Training Balance Other Therapy Comment Hip precautions Outcome/Goals Maintain/ Achieve Baseline Mobility Status Improve Mobility Status Demonstrates Proper Use of Assistive Devices Free from Complications of Immobility Progression Toward Outcome/Goals Progressing Bed Mobility Yes: Independent Transfers Yes: Modified independent with RW Gait x ft Yes: Modified independent 150 ' with RW W/C Mobility x ft No Up/Down Stairs Yes: Independent 4 steps 1 rail, sc With HEP Yes Goal Comment Recall 3/3 hip precautions Neurological- Improve/Maintain Start: 04/30/17 13:30 Freq: DAILY Status: Active Target: Activity Type Activity Date Activity User E-Sign Co-Sign Detail Recorded Client Recorded Date Recorded By Document 05/04/17 10:17 [id number] 05/04/17 10:18 [id number] 05/04/17 10:17 PMRU Outcome: Neurological Weakness/Aphasia Weakness Outcome/Goals Maintain/ Improve Strength/ROM Progression Toward Outcome/Goals Progressing Pain/Comfort- Improve/Maintain Start: 04/30/17 13:30 Freq: DAILY Status: Complete Target: Activity Type Activity Date Activity User E-Sign Co-Sign Detail Recorded Client Recorded Date Recorded By Document 05/03/17 15:26 [id number] 05/03/17 15:30 [id number] 05/03/17 15:26 PMRU Outcome: Pain/Comfort Outcome/Goals Demonstrates Knowledge and Use of Available Comfort Measures Achieves Acceptable Comfort/Pain Level as Determined by Patient/Condit Maintain Comfort Level Allowing Patient to Fully Participate in Rehab Outcome/Goals Met Achieves Acceptable Comfort/Pain Level as Determined by Patient/Condit Maintain Comfort Level Allowing Patient to Fully Participate in Rehab Safety- Improve/Maintain Start: 04/30/17 13:30 Freq: DAILY Status: Active Target: Activity Type Activity Date Activity User E-Sign Co-Sign Detail Recorded Client Recorded Date Recorded By Document 05/04/17 10:17 [id number] 05/04/17 10:18 [id number] 05/04/17 10:17 PMRU Outcome: Safety Outcome/Goals Remain Free of Injury or Harm Cooperates with Safety Measures for Least Restrictive Environment Prevent Falls/ Injury Progression Toward Outcome/Goals Progressing Outcome/Goals Met Comment PA removed- pt a&ox4 Skin- Improve/Maintain Start: 04/30/17 13:30 Freq: DAILY Status: Active Target: Activity Type Activity Date Activity User E-Sign Co-Sign Detail Recorded Client Recorded Date Recorded By Document 05/04/17 10:17 [id number] 05/04/17 10:18 [id number] 05/04/17 10:17 PMRU Outcome: Skin Skin Risk Level Low Skin Orders Dressing Change Turn/Position q2hr While in Bed Outcome/Goals Free from Decubitus Surgical Incisions Healing Progression Toward Outcome/Goals Progressing Outcome/Goals Met Comment Dressing removed, no drainage noted. Medicine Note: Length of Stay: 6 days Anticipated Discharge Destination: Home Tentative Discharge Date: May Discharged to: Home
[2017-05-04] MEDS ORDERED: Warfarin TAB(*) 1 MG PO ONE (17:00)
[2017-05-04] MEDS: Atorvastatin* 10 MG TAB PO SCH (17:06)
[2017-05-04] MEDS ORDERED: celeCOXIB CAP* 100 MG PO ONE (20:00)
[2017-05-04] MEDS: Senna TAB PO SCH (21:12)
[2017-05-04] MEDS: Citalopram TAB* 10 MG PO SCH (21:12)
[2017-05-05] MEDS: Insulin LISPRO* 1 UNITS UNIT SUBCUT SCH ×4 (08:19→20:56)
[2017-05-05] MEDS: Docusate CAP* 100 MG PO SCH ×2 (09:00→20:10)
[2017-05-05] MEDS: metFORMIN* 500 MG TAB PO SCH ×2 (09:00→17:44)
[2017-05-05] MEDS: Furosemide TAB* 20 MG PO SCH (09:00)
[2017-05-05] MEDS: Oxybutynin XL TAB* 5 MG PO SCH (09:00)
[2017-05-05] MEDS: clonazePAM TAB(*) 0.5 MG PO SCH ×2 (09:00→20:09)
[2017-05-05] MEDS: traMADol TAB* 50 MG PO PRN ×2 (09:00→20:13)
[2017-05-05] MEDS: Atorvastatin* 10 MG TAB PO SCH (17:44)
[2017-05-05] MEDS: Warfarin TAB(*) 1 MG PO SCH (17:45)
[2017-05-05] MEDS: Citalopram TAB* 10 MG PO SCH (20:09)
[2017-05-05] MEDS: Senna TAB PO SCH (20:10)
[2017-05-06] MEDS: Acetaminophen TAB* 325 MG PO PRN (00:51)
[2017-05-06] MEDS: traMADol TAB* 50 MG PO PRN ×3 (07:09→22:23)
[2017-05-06] MEDS: Insulin LISPRO* 1 UNITS UNIT SUBCUT SCH ×4 (07:17→20:33)
[2017-05-06] MEDS: Docusate CAP* 100 MG PO SCH ×2 (08:06→20:56)
[2017-05-06] MEDS: clonazePAM TAB(*) 0.5 MG PO SCH ×2 (08:06→20:56)
[2017-05-06] MEDS: metFORMIN* 500 MG TAB PO SCH ×2 (08:06→18:13)
[2017-05-06] MEDS: Oxybutynin XL TAB* 5 MG PO SCH (08:07)
[2017-05-06] MEDS: Furosemide TAB* 20 MG PO SCH (08:07)
[2017-05-06 08:50] LABS: BUN/Creatinine Ratio 15.3 (8-20); EGFR African American 68.9 (>60); EGFR Non-African American 53.6 (>60)
[2017-05-06] MEDS: Atorvastatin* 10 MG TAB PO SCH (18:13)
[2017-05-06] MEDS: Warfarin TAB(*) 1 MG PO SCH (18:21)
[2017-05-06] MEDS: Citalopram TAB* 10 MG PO SCH (20:55)
[2017-05-06] MEDS: Senna TAB PO SCH (20:56)
[2017-05-07] MEDS: Insulin LISPRO* 1 UNITS UNIT SUBCUT SCH ×4 (07:53→21:54)
[2017-05-07] MEDS: metFORMIN* 500 MG TAB PO SCH ×2 (08:23→17:17)
[2017-05-07] MEDS: Furosemide TAB* 20 MG PO SCH (08:24)
[2017-05-07] MEDS: clonazePAM TAB(*) 0.5 MG PO SCH ×3 (08:24→22:31)
[2017-05-07] MEDS: Oxybutynin XL TAB* 5 MG PO SCH (08:24)
[2017-05-07] MEDS: Docusate CAP* 100 MG PO SCH ×2 (08:24→21:53)
[2017-05-07] MEDS: traMADol TAB* 50 MG PO PRN ×2 (10:10→21:53)
[2017-05-07] MEDS: Warfarin TAB(*) 1 MG PO SCH (17:17)
[2017-05-07] MEDS: Atorvastatin* 10 MG TAB PO SCH (17:17)
[2017-05-07] MEDS: Acetaminophen TAB* 325 MG PO PRN (17:17)
[2017-05-07] MEDS: Citalopram TAB* 10 MG PO SCH (21:53)
[2017-05-07] MEDS: Senna TAB PO SCH (21:53)
[2017-05-08] MEDS: Insulin LISPRO* 1 UNITS UNIT SUBCUT SCH ×4 (08:38→20:49)
[2017-05-08] MEDS: Docusate CAP* 100 MG PO SCH ×2 (08:41→20:49)
[2017-05-08] MEDS: metFORMIN* 500 MG TAB PO SCH ×2 (08:41→17:26)
[2017-05-08] MEDS: Oxybutynin XL TAB* 5 MG PO SCH (08:41)
[2017-05-08] MEDS: Furosemide TAB* 20 MG PO SCH (08:41)
[2017-05-08] MEDS: clonazePAM TAB(*) 0.5 MG PO SCH ×2 (08:41→20:48)
[2017-05-08] MEDS: Acetaminophen TAB* 325 MG PO PRN (12:13)
[2017-05-08] MEDS ORDERED: Warfarin TAB(*) 2 MG PO SCH (17:00)
[2017-05-08] MEDS: Atorvastatin* 10 MG TAB PO SCH (17:27)
[2017-05-08] MEDS: traMADol TAB* 50 MG PO PRN (19:10)
[2017-05-08] MEDS: Citalopram TAB* 10 MG PO SCH (20:48)
[2017-05-08] MEDS: Senna TAB PO SCH (20:50)
[2017-05-09] MEDS: traMADol TAB* 50 MG PO PRN (05:29)
[2017-05-09] MEDS: Insulin LISPRO* 1 UNITS UNIT SUBCUT SCH (07:56)
[2017-05-09] MEDS: clonazePAM TAB(*) 0.5 MG PO SCH (08:25)
[2017-05-09] MEDS: Oxybutynin XL TAB* 5 MG PO SCH (08:25)
[2017-05-09] MEDS: Furosemide TAB* 20 MG PO SCH (08:25)
[2017-05-09] MEDS: metFORMIN* 500 MG TAB PO SCH (08:26)
[2017-05-09] MEDS: Docusate CAP* 100 MG PO SCH (08:26)
[2017-05-09 08:50] VITALS: BP 126/48
--- NOTE | 2017-05-10 07:03 | DS ---
CC: Dr. Mccarthy; Dr. Quiñones REHABILITATION DISCHARGE SUMMARY: DATE OF ADMISSION: 04/30/17 DATE OF DISCHARGE: 05/09/17 ORTHOPEDIC SURGEON: Dr. Mccarthy. PRIMARY CARE PROVIDER: Dr. Quiñones. REASON FOR ADMISSION: Right total hip replacement. HISTORY OF PRESENT ILLNESS: For full details of her acute hospitalization leading up to her admission, please see the note dictated by Dr. Velazquez on . HOSPITAL COURSE: During her time on the PMRU, she was noted to have significant edema in both of her legs. She was started on Lasix with good effect. For her diabetes, she was restarted on Glucophage and followed with sliding scale insulin. She will go home on her home dose of Glucophage. She was noted to become supratherapeutic on Coumadin and it was held for several days. Her INR got as high as 5.47. On 05/05, low-dose Coumadin was started at 1 mg daily and yesterday when her INR was as low as 1.67, then it was increased to 2 mg. She will continue having blood draws every Wednesday and by visiting nurse services with results going to Dr. Mccarthy for further adjustment. During her time on the RU, she participated well with physical therapy. At the time of discharge, she was independent with bed mobility, transferring with a rolling walker, and ambulation with a rolling walker up to 150 feet. She was independent climbing up and down 10 stairs with bilateral rails. She knows her hip precautions and has a home exercise program. She also did well with occupational therapy and at the time of discharge, was independent with eating. She was independent for lower body bathing, using a long handled sponge. She was independent for transfers with the walker for functional activities such as bathing and toileting. She is independent dressing with a qualification engineer, sock aid and shoehorn. She is independent with a front-wheel walker for light cooking and cleaning. She is also independent with medication management. DISCHARGE CONDITION: Good. DISCHARGE DISPOSITION: Home with some family support. FOLLOWUP: 1. A referral is being sent to [facility] for ongoing therapies, nursing management, home health aide, and lab draws for INR every Wednesday and . 3. Follow up with Dr. Mccarthy in another week. 4. Follow up with Dr. Quiñones in one to two weeks. DISCHARGE MEDICATIONS: 1. Docusate 100 mg b.i.d. 2. Senna two tablets q.h.s. 3. Warfarin 2 mg q.p.m. or as directed. 4. Tramadol 50 mg q.6h. p.r.n. moderate pain. 5. Metformin 500 mg daily. 6. Celexa 10 mg q.h.s. 7. Crestor 5 mg q.a.m. 8. Clonazepam 0.5 mg b.i.d. 9. Detrol LA 4 mg q.a.m. 10. Calcium with Vitamin D 1 tablet q.a.m. 11. Tylenol 625 mg q.8h. Of note, she has not required her Benicar 20 mg b.i.d. for her blood pressure management while in the hospital. She can follow up with her primary doctor about this after discharge. Also, she is off of baby aspirin and Celebrex until she is off of Coumadin. DISCHARGE DIAGNOSES: 1. 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 2. Diabetes mellitus. 3. Hyperlipidemia. 4. Stress urinary incontinence. [id number]/CPS #: [id number] MTDD
== END 2017-05-09 11:00 | disposition home or self-care (01) | DRG 561 ==
LOC: PMRU 10:48 → UNDODISIN 11:42
PROVIDERS: ADMIT Physical Medicine & Rehabilitation; ATTEND Physical Medicine & Rehabilitation
PROC: F08Z0ZZ Bathing/Showering Techniques Treatment (ICD-10-PCS; principal; 2017-04-30)
PROC: F08Z1ZZ Dressing Techniques Treatment (ICD-10-PCS; 2017-04-30)
PROC: F08Z3ZZ Feeding/Eating Treatment (ICD-10-PCS; 2017-04-30)
PROC: F07Z5ZZ Bed Mobility Treatment (ICD-10-PCS; 2017-04-30)
PROC: F07Z9ZZ Gait Training/Functional Ambulation Treatment (ICD-10-PCS; 2017-04-30)
PROC: F07Z8ZZ Transfer Training Treatment (ICD-10-PCS; 2017-04-30)
DX: Z47.1 Aftercare following joint replacement surgery (principal); E11.9 Type 2 diabetes mellitus without complications; I10 Essential (primary) hypertension; Z96.641 Presence of right artificial hip joint; R60.0 Localized edema; Z79.84 Long term (current) use of oral hypoglycemic drugs; E78.5 Hyperlipidemia, unspecified; N39.3 Stress incontinence (female) (male); Z79.4 Long term (current) use of insulin; Z79.899 Other long term (current) drug therapy
CPT/HCPCS: 36415; 80048; 80053; 85025; 85610; A9270-GY

== ENCOUNTER 2018-03-24 15:23 | Emergency (ER) | payer MEDICARE, OTHER ==
[2018-03-24 16:31] VITALS: BP 157/93
--- NOTE | 2018-03-24 17:20 | RAD ---
Indication: Left ankle injury. 4 views of left ankle demonstrates ankle mortise intact. There is no fracture or dislocation. Soft tissue swelling is noted laterally. No fracture is identified. IMPRESSION: Soft tissue swelling laterally without fracture.
--- NOTE | 2018-03-24 17:29 | UC ---
Lower Extremity/Ankle HPI - HPI Summary HPI Summary: 87 yo female injured her left ankle 02/05 has had intermittent discomfort since them past day or so increased pain and swelling pain medially >>laterally able to bear wt but now using walker - History of Current Complaint Chief Complaint: UCLowerExtremity Stated Complaint: LT ANKLE SWOLLEN Time Seen by Provider: 03/24/18 16:31 Hx Obtained From: Patient Hx Last Menstrual Period: NA Onset/Duration: Sudden Onset, Lasting Weeks Severity Initially: Moderate Severity Currently: Moderate Pain Intensity: 5 Pain Scale Used: 0-10 Numeric Aggravating Factor(s): Standing, Ambulation Alleviating Factor(s): Rest Able to Bear Weight: Yes Feet (Multiple View): 1 - swollen but non tender 2 - tender - Allergies/Home Medications Allergies/Adverse Reactions: Allergies Allergy/AdvReac Type Severity Reaction Status Date / Time lisinopril Allergy Rash Verified 03/24/18 16:14 naproxen Allergy Rash And Verified 03/24/18 16:14 Itching niacin Allergy Flushing, Verified 03/24/18 16:14 increased body heat Home Medications: Home Medications Aspirin EC TAB* [Ecotrin EC Low Dose 81 MG*] 81 mg PO DAILY 03/24/18 [History Confirmed 03/24/18] Ibuprofen TAB* [Advil TAB*] 600 mg PO Q6H PRN 03/24/18 [History Confirmed ] Metoprolol Tartrate TAB* [Lopressor TAB*] 25 mg PO DAILY 03/24/18 [History Confirmed 03/24/18] Olmesartan Medoxomil [Benicar] 40 mg PO DAILY 03/24/18 [History Confirmed ] PMH/Surg Hx/FS Hx/Imm Hx Endocrine History: Diabetes, Dyslipidemia Cardiovascular History: Hypertension - Surgical History Surgical History: Yes Surgery Procedure, Year, and Place: spinal fusion. KNEE REPLACEMENT R. HYSTERECTOMY. maria r. tonsillectomy. RIGHT HIP REPLACEMENT - Family History Known Family History: Positive: Hypertension - Social History Alcohol Use: None Substance Use Type: None Smoking Status (MU): Never Smoked Tobacco - Immunization History Most Recent Influenza Vaccination: [id number] Most Recent Tetanus Shot: about 2014 Most Recent Pneumonia Vaccination: within the last 10 years Review of Systems Constitutional: Negative Skin: Negative Eyes: Negative ENT: Negative Respiratory: Negative Cardiovascular: Negative Gastrointestinal: Negative Genitourinary: Negative Motor: Negative Neurovascular: Negative Musculoskeletal: Arthralgia Neurological: Negative Psychological: Negative Is Patient Immunocompromised?: No All Other Systems Reviewed And Are Negative: Yes Physical Exam Triage Information Reviewed: Yes Appearance: No Pain Distress, Well-Nourished, Ill-Appearing Vital Signs: Initial Vital Signs Temp 98.6 F 03/24/18 16:24 Pulse 80 03/24/18 16:24 Resp 16 03/24/18 16:24 BP 157/93 03/24/18 16:24 Pulse Ox 99 03/24/18 16:24 Vital Signs Reviewed: Yes Eyes: Positive: Conjunctiva Clear ENT: Negative: Nasal congestion, Nasal drainage, Trismus, Muffled voice, Hoarse voice Neck: Positive: Supple, Nontender, No Lymphadenopathy Respiratory: Positive: Lungs clear, Normal breath sounds, No respiratory distress Cardiovascular: Positive: RRR, No Murmur Musculoskeletal: Positive: ROM Intact, Edema @ - LM left ankle Neurological: Positive: Alert Psychological Exam: Normal Skin Exam: Normal Diagnostics - Radiology No standard instances Xray Interpretation: No Acute Changes - except STS Radiology Interpretation Completed By: Radiologist Lower Extremity Course/Dx - Differential Dx/Diagnosis Provider Diagnoses: left ankle pain, ? sprain Discharge - Sign-Out/Discharge Documenting (check all that apply): Discharge/Admit/Transfer - Discharge Plan Condition: Stable Disposition: HOME Patient Education Materials: Swollen Joint (ED) Referrals: Fabio Díaz MD [Medical Doctor] - As Soon As Possible Amirah Mccarthy MD [Medical Doctor] - As Soon As Possible Additional Instructions: no fracture noted I suggest you see your orthopedist or Dr. Díaz for reevaluation - Billing Disposition and Condition Condition: STABLE Disposition: HOME
== END 2018-03-24 17:45 | disposition home or self-care (01) ==
LOC: UCCORT 15:23
DX: M25.572 Pain in left ankle and joints of left foot (principal); X58.XXXA Exposure to other specified factors, initial encounter; Y93.9 Activity, unspecified; Y92.9 Unspecified place or not applicable; E11.9 Type 2 diabetes mellitus without complications; I10 Essential (primary) hypertension
CPT/HCPCS: 99212; G0463

== ENCOUNTER 2018-04-22 12:13 | Emergency (ER) | payer MEDICARE, OTHER ==
[2018-04-22 13:23] VITALS: BP 147/74
--- NOTE | 2018-04-22 13:44 | UC ---
General HPI - HPI Summary HPI Summary: Pt c/o right lateral rib pain, that began 1 month ago. Denies injury or trauma. Pt does report that she had been using reclining chair that required she lean to her right side to use handle to raise feet. Pain began shortly after getting chair. - History of Current Complaint Chief Complaint: UCChestPain Stated Complaint: RIB PAIN (2MO) Time Seen by Provider: 04/22/18 13:05 Hx Obtained From: Patient Hx Last Menstrual Period: NA Onset/Duration: Gradual Onset, Lasting Weeks, Still Present Timing: Constant Onset Severity: Mild Current Severity: Mild Pain Intensity: 0 - Allergy/Home Medications Allergies/Adverse Reactions: Allergies Allergy/AdvReac Type Severity Reaction Status Date / Time lisinopril Allergy Rash Verified 04/22/18 13:24 naproxen Allergy Rash And Verified 04/22/18 13:24 Itching niacin Allergy Flushing, Verified 04/22/18 13:24 increased body heat PMH/Surg Hx/FS Hx/Imm Hx Previously Healthy: Yes Endocrine History: Diabetes, Dyslipidemia Cardiovascular History: Cardiac Disease, Hypertension - Surgical History Surgical History: Yes Surgery Procedure, Year, and Place: [place] [facility] [place] KNEE REPLACEMENT RIGHT, 2003, [facility]. HYSTERECTOMY, 1972. GALLBLADDER, 2003. tonsillectomy A CHILD. RIGHT HIP REPLACEMENT - Family History Known Family History: Positive: Hypertension - Social History Occupation: Retired Lives: With Family Alcohol Use: None Substance Use Type: None Smoking Status (MU): Never Smoked Tobacco Have You Smoked in the Last Year: No - Immunization History Most Recent Influenza Vaccination: [id number] Most Recent Tetanus Shot: about 2014 Most Recent Pneumonia Vaccination: within the last 10 years Review of Systems Constitutional: Negative Skin: Negative Eyes: Negative ENT: Negative Respiratory: Negative Cardiovascular: Negative Gastrointestinal: Negative Genitourinary: Negative Motor: Negative Neurovascular: Negative Musculoskeletal: Arthralgia Neurological: Negative Psychological: Negative Is Patient Immunocompromised?: No All Other Systems Reviewed And Are Negative: Yes Physical Exam Triage Information Reviewed: Yes Appearance: Well-Appearing Vital Signs: Initial Vital Signs Temp 98 F 04/22/18 13:21 Pulse 74 04/22/18 13:21 Resp 18 04/22/18 13:21 BP 147/74 04/22/18 13:21 Pulse Ox 98 04/22/18 13:21 Vital Signs Reviewed: Yes Eye Exam: Normal ENT Exam: Normal ENT: Positive: Hearing grossly normal Neck exam: Normal Respiratory Exam: Normal Cardiovascular Exam: Normal Musculoskeletal Exam: Other Musculoskeletal: Positive: Other: - left LE in cam boot., c/o tenderness at right lateral ribs 8-10 Neurological Exam: Normal Psychological Exam: Normal Skin Exam: Normal Diagnostics - Radiology No standard instances Radiology Interpretation Completed By: Radiologist - IMPRESSION: NO ACUTE RIB FRACTURE. Course/Dx - Differential Dx - Multi-Symptom Provider Diagnoses: right side rib pain. Discharge - Sign-Out/Discharge Documenting (check all that apply): Discharge/Admit/Transfer - Discharge Plan Condition: Stable Disposition: HOME Patient Education Materials: Rib Contusion (ED) Referrals: Morgan Quiñones MD [Primary Care Provider] - If Needed - Billing Disposition and Condition Condition: STABLE Disposition: Home
--- NOTE | 2018-04-22 13:58 | RAD ---
INDICATION: Right rib injury COMPARISON: None TECHNIQUE: Multiple views of the ribs were obtained. FINDINGS: Bones: There is no evidence of acute rib fracture. LUNGS: The lungs are clear. There is no pneumothorax. Pleural spaces: There is no evidence of hemothorax. Other: There is old granulomatous disease IMPRESSION: NO ACUTE RIB FRACTURE.
== END 2018-04-22 14:13 | disposition home or self-care (01) ==
LOC: UCCORT 12:13
DX: R07.81 Pleurodynia (principal); Z88.6 Allergy status to analgesic agent; Z88.8 Allergy status to other drugs, medicaments and biological substances; E11.9 Type 2 diabetes mellitus without complications; I10 Essential (primary) hypertension
CPT/HCPCS: 99212; G0463

== ENCOUNTER 2018-05-25 08:02 | Emergency (ER) | payer MEDICARE, OTHER ==
--- OUTSIDE RECORDS SUMMARY | 2018-05-25 08:25 | XMS REPORT ---
:1930 External Reference #:[id number] Author Organization [facility] Address [address] [place] [address] [place] [address] Phone [phone] Care Team Providers Name Role Phone Morgan Quiñones MD Primary Care Physician Unavailable Payers Type Date Identification Numbers Payment Provider Subscriber Medicare Primary Effective: Policy Number: Medicare Aiyana Clement 1995 [id number] PayID: [id number] [address] [place] [address] [facility] Expires: 2016 Policy Number: [employer] efrain Aiyana Clement [id number] PayID: [id number] [address] [place] [address] Commercial Policy Number: [id number] Lifetime Benefit Solution Aiyana Clement PayID: [id number] [address] [place] [address] Problems Date Description Provider Status Onset: 03/24/2017 Localized, primary osteoarthritis of the Amirah Mccarthy M.D. Active pelvic region and thigh Onset: 10/12/2017 Acquired trigger finger Itz Win MD Active Onset: 03/25/2018 Carpal tunnel syndrome of left wrist Amirah Mccarthy M.D. Active Onset: 03/25/2018 Tibialis tendinitis Amirah Mccarthy M.D. Active Onset: 03/25/2018 Localized, primary osteoarthritis of the Amirah Mccarthy M.D. Active ankle and/or foot Onset: Urinary incontinence Active Onset: Diabetes mellitus Active Onset: Depressive disorder Active Onset: Hyperlipidemia Active Onset: History of total hip arthroplasty Active Onset: Tachycardia Active Onset: Retention of urine Active Onset: Patient encounter status Active Onset: Hypertensive disorder Active Onset: 04/01/2018 Closed fracture of medial malleolus Amirah Mccarthy M.D. Active Family History Date Family Member(s) Problem(s) Comments General bipolar disorder General Diabetes Social History Type Date Description Comments Marital Status Lives With Alone Occupation Retired county worker Cigarette Use Never Smoked Cigarettes Cigars Never Smoked Cigars Pipe Never Smoked A Pipe Smokeless Tobacco Never Used Smokeless Tobacco ETOH Use Denies alcohol use Recreational Drug Use Denies Drug Use Smoking Patient has never smoked Daily Caffeine Comsumes on average 1 cup of decaff coffee per day Exercise Type/Frequency Exercises rarely Allergies, Adverse Reactions, Alerts Date Description Reaction Status Severity Comments 04/25/2012 Naprosyn hives active 02/25/2017 Lisinopril active 02/25/2017 Niacin active Medications Medication Date Status Form Strength Qnty SIG Indications Ordering Provider Oxycodone-Acetaminop 03/25 Active Tablets 5-325mg 56tab 1-2 tabs M25.532 s by mouth Fabio, every 6 M.D. hours as needed for pain Ecotrin Low Strength 03/24 Active Tablets 81mg Every Day Metoprolol Tartrate 03/24 Active Tablets 25mg Every Day Benicar 03/24 Active Tablets 40mg Every Day Tylenol 05/01 Active Tablets 325mg Q8H Crestor 04/20 Active Tablets 5mg Every Morning Benicar Active Tablets 20mg 1 by Unknown /0000 mouth twice daily Tylenol Extra Active Tablets 500mg 2 by Unknown Strength /0000 mouth as needed Metformin HCL Active Tablets 500mg 1 by Unknown /0000 mouth qday Calcium Active Tablets 500mg 1 by Unknown /0000 mouth every day Vitamin D Active Capsules 1000Unit 1 by Unknown (Cholecalciferol) /0000 mouth every day Clonazepam 00/00 Active Tablets 0.5mg 1 by Unknown /0000 mouth as needed for sleep Crestor 00 Active Tablets 5mg 1 tab po Unknown /0000 daily Citalopram 00 Active Tablets 10mg 1 by Unknown Hydrobromide /0000 mouth every day Metoprolol Succinate 00 Active Tablets 25mg 1 by Unknown ER /0000 ER 24HR mouth every day Aspir-Low 00 Active Tablets 81mg 1 by Unknown /0000 DR mouth every day Coumadin 04/19 Hx Tablets 2mg 90tab take 1-3 s tabs by Fabio, - mouth at M.D. 06/20 5 at night as directed Percocet 04/19 Hx Tablets 5-325mg 90tab 1-2 by s mouth Fabio, - every 4-6 M.D. 10/08 hours needed pain Colace 04/19 Hx Capsules 100mg 90cap 1 tab by s mouth 2-3 Fabio, - times a M.D. 07/22 day needed Hydrochlorothiazide Hx Tablets 90tab 1 po qd Lenn[place], /0000 krishna Wise MD - 04/18 Ometec Hx 1 qd Unknown / - 04/18 Aspirin Adult Low Hx Chewtabs 81mg 100un 1 po qd Delang, Strength /0000 yoni Wise MD - 06/20 Celebrex Hx Capsules 200mg 1 by Unknown /0000 mouth - every day 06/20 Detrol LA Hx Caps ER take one Unknown 24HR capsule - by mouth 10/08 evening (fill when patient calls) Tramadol HCL 00/00 Hx Unknown /0000 - 06/20 Medications Administered in Office Medication Date Status Form Strength Qnty SIG Indications Ordering Provider Celestone 3 mg Administered Injection Itz and 3mg Ibrahima Win MD Vital Signs Date Vital Result Comment 04/27/2018 Height 61 inches 5'1" Weight 184.00 lb Respiratory Rate 18 /min BMI (Body Mass Index) 34.8 kg/m2 04/08/2018 Height 61 inches 5'1" Weight 184.00 lb BP Systolic 142 mmHg BP Diastolic 74 mmHg Body Temperature 97.3 F BMI (Body Mass Index) 34.8 kg/m2 04/01/2018 Height 61 inches 5'1" Weight 184.00 lb BP Systolic 140 mmHg BP Diastolic 84 mmHg Body Temperature 98.0 F BMI (Body Mass Index) 34.8 kg/m2 03/25/2018 Height 61 inches 5'1" Weight 184.00 lb BP Systolic 128 mmHg BP Diastolic 84 mmHg Body Temperature 97.8 F BMI (Body Mass Index) 34.8 kg/m2 03/24/2018 Height 61.5 inches Weight 175.00 lb Heart Rate 80 /min BP Systolic 157 mmHg BP Diastolic 93 mmHg Respiratory Rate 16 /min Body Temperature 98.6 F O2 % BldC Oximetry 99 % BMI (Body Mass Index) 32.5 kg/m2 10/12/2017 Height 61 inches 5'1" Weight 174.00 lb Heart Rate 72 /min BP Systolic Sitting 120 mmHg BP Diastolic Sitting 88 mmHg Respiratory Rate 12 /min Pain Level 0 BMI (Body Mass Index) 32.9 kg/m2 07/23/2017 Height 61 inches 5'1" Weight 174.00 lb Heart Rate 90 /min BP Systolic 101 mmHg BP Diastolic 75 mmHg BMI (Body Mass Index) 32.9 kg/m2 06/21/2017 Height 61 inches 5'1" Weight 176.00 lb Heart Rate 100 /min BP Systolic 153 mmHg BP Diastolic 74 mmHg Body Temperature 97.4 F Pain Level 0 BMI (Body Mass Index) 33.3 kg/m2 05/17/2017 Height 61.5 inches 5'1.50" Weight 175.00 lb Heart Rate 93 /min BP Systolic 153 mmHg BP Diastolic 82 mmHg Body Temperature 97.9 F Pain Level 5 BMI (Body Mass Index) 32.5 kg/m2 04/19/2017 Height 60.5 inches 5'0.50" Weight 190.00 lb Heart Rate 91 /min BP Systolic 149 mmHg BP Diastolic 91 mmHg Body Temperature 98.4 F BMI (Body Mass Index) 36.5 kg/m2 03/24/2017 Height 60.5 inches 5'0.50" Weight 170.00 lb BP Systolic 124 mmHg BP Diastolic 80 mmHg Respiratory Rate 17 /min Body Temperature 97.6 F Pain Level 7 BMI (Body Mass Index) 32.7 kg/m2 02/25/2017 Height 61.5 inches 5'1.50" Weight 175.00 lb Heart Rate 72 /min BP Systolic Sitting 134 mmHg BP Diastolic Sitting 76 mmHg Respiratory Rate 16 /min Pain Level 8 BMI (Body Mass Index) 32.5 kg/m2 04/25/2012 Weight 178.00 lb Heart Rate 80 /min BP Systolic Sitting 128 mmHg BP Diastolic Sitting 80 mmHg Results Test Date Test Result H/L Range Note Urinalysis Profile 04/20/2017 Urine Color Yellow Urine Appearance Clear Urine Specific [place] 1.017 1.010-1.030 Urine pH 5.0 5-9 Urine Urobilinogen Negative Negative Urine Ketones Negative Negative Urine Protein Negative Negative Urine Leukocytes Negative Negative Urine Blood Negative Negative Urine Nitrite Negative Negative Urine Bilirubin Negative Negative Urine Glucose Negative Negative CBC No Diff 04/20/2017 White Blood Count 8.4 10^3/uL 3.5-10.8 Red Blood Count 4.14 10^6/uL 4.0-5.4 Hemoglobin 12.1 g/dL 12.0-16.0 Hematocrit 37 % 35-47 Mean Corpuscular Volume 90 fL 80-97 Mean Corpuscular Hemoglobin 29 pg 27-31 Mean Corpuscular HGB Conc 33 g/dL 31-36 Red Cell Distribution Width 14 % 10.5-15 Platelet Count 353 10^3/uL 150-450 Mean Platelet Volume 9 um3 7.4-10.4 Comp Metabolic Panel 04/20/2017 Sodium 137 mmol/L 133-145 Potassium 4.4 mmol/L 3.5-5.0 Chloride 103 mmol/L 101-111 Co2 Carbon Dioxide 29 mmol/L 22-32 Anion Gap 5 mmol/L 2-11 Glucose 116 mg/dL High 70-100 Blood Urea Nitrogen 26 mg/dL High 6-24 Creatinine 1.10 mg/dL High 0.51-0.95 BUN/Creatinine Ratio 23.6 High 8-20 Calcium 9.9 mg/dL 8.6-10.3 Total Protein 6.7 g/dL 6.4-8.9 Albumin 4.2 g/dL 3.2-5.2 Globulin 2.5 g/dL 2-4 Albumin/Globulin Ratio 1.7 1-3 Total Bilirubin 0.50 mg/dL 0.2-1.0 Alkaline Phosphatase 51 U/L 34-104 Alt 15 U/L 7-52 Ast 26 U/L 13-39 Egfr Non- 46.9 >60 Egfr 60.3 >60 1 Inr/Protime 04/20/2017 Inr 0.86 Low 0.89-1.11 Laboratory test finding 04/20/2017 Partial Thrombo Time 29.3 seconds 26.0 -36.3 2 PTT Type & Screen 04/20/2017 Patient Blood Type A Positive Antibody Screen NEGATIVE Urine Culture And Sensitivities 04/20/2017 Urine Culture SEE RESULT BELOW 3 1 Because ethnic data is not always readily available, this report includes an eGFR for both -Americans and non- Americans. The National Kidney Disease Education Program (NKDEP) does not endorse the use of the MDRD equation for patients that are not between the ages of 18 and 70, are , have extremes of body size, muscle mass, or nutritional status, or are non- or non-. According to the National Kidney Foundation, irrespective of diagnosis, the stage of the disease is based on the level of kidney function: Stage Description GFR(mL/min/1.73 m(2)) 1 Kidney damage with normal or decreased GFR 90 2 Kidney damage with mild decrease in GFR 60-89 3 Moderate decrease in GFR 30-59 4 Severe decrease in GFR 15-29 5 Kidney failure <15 (or dialysis) 2 6191114 SD 3 SEE RESULT BELOW Name: AIYANA CLEMENT : [address]: Amirah Mccarthy MD Acct: [id number] Unit: [id number] AGE: 87 Location: [facility] Re04/20/17 SEX: F Status: REG REF SPEC: [id number] GABY: 04/20/17-1301 [facility] DR: Amirah Mccarthy MD REQ: [id number] RECD: 04/20/17 STATUS: COMP _ SOURCE: URINE SPDESC: ORDERED: Urine Culture COMMENTS: [id number] SD QUERIES: Urine Source: Clean Catch Procedure Result Reported Site Urine Culture Final 04/21/17- 1459 ML No growth of clinically significant organisms * ML - MAIN LAB (PSC1) . END OF REPORT * ML=Testing performed at Main Lab DEPARTMENT OF PATHOLOGY, [address] [place] [address] Markell Parrish M.D. Director [facility] # [id number] Procedures Date CPT Code Description Status 10/12/201754114 Inject Tendon Sheath Or Ligament Aponeurosis Eg Plantar Completed Fascia 04/29/2017 07695 EKG, Interpretation Only Completed 04/27/2017 59488 THR Total Hip Replacement Completed 04/27/2017 45110 THR Total Hip Replacement Completed 02/25/2017 10919 Radiologic Exam Hip Unilateral With Pelvis 2-3 Views Completed 02/25/2017 09959 Rad Exam; Spine Lumbosacral Completed Encounters Type Date Location Provider CPT E/M Dx Office Visit 04/08/2018 [facility] Amirah Mccarthy M.D. 10848 S82.55xA 9:15a Of C.M.A. M25.572 Office Visit 04/01/2018 9:00a [facility] Of Amirah Mccarthy, 61841 S82.55xA C.M.AMiladis Snow M25.572 Office Visit 03/25/2018 1:15p [facility] Amirah Mccarthy M.D. 89432 M19.072 C.M.A. G56.02 M76.822 M25.572 M25.532 Office Visit 10/12/2017 9:00a [facility] Of Itz Win, 49960 M65.342 Credentialing Coordinator AT Lizella Office Visit 04/30/2017 2:06p [facility], 80863 E11.9 Hospitalists SEAFOOD CLERK E78.5 I10 Office Visit 04/29/2017 2:05p [facility] J[place]ED [address] E78.5 Hospitalists E11.9 I10 Office Visit 04/28/2017 2:02p [facility] [address] E11.9 Hospitalists E78.5 I10 Office Visit 04/27/2017 2:01p [facility], [place] [address] E11.9 Hospitalists E78.5 I10 Office Visit 03/24/2017 10:00a [facility] Amirah Mccarthy M.D. 71999 M16.11 C.M.A. M25.551 Office Visit 02/25/2017 1:00p [facility] [place] [address] M16.11 Credentialing Coordinator AT Lizella M47.26 Office Visit 05/09/2012 9:30a [facility] Nigel Shah, [address] 388.31 [facility]10 Office Visit 04/25/2012 10:15a [facility], [address] [facility] 04/27/2018 - Amirah Mccarthy M.D.M76.822 Posterior tibial tendinitis, left legFollow up:as needed with Dr. Morrow82.55xD Nondisp fx of med malleolus of l tibia, 7thD
[2018-05-25 08:32] VITALS: BP 145/76
--- NOTE | 2018-05-25 09:00 | UC ---
Complaint Female HPI - HPI Summary HPI Summary: Urinary frequency and urgency starting yesterday. No fever, vomiting or flank pain. - History Of Current Complaint Chief Complaint: UCGU Stated Complaint: URINARY Time Seen by Provider: 05/25/18 08:48 Hx Obtained From: Patient Hx Last Menstrual Period: NA Onset/Duration: Gradual Onset, Lasting Hours Timing: Intermittent Severity Initially: Moderate Severity Currently: Moderate Pain Intensity: 0 Character: Not Applicable Aggravating Factor(s): Nothing Alleviating Factor(s): Nothing Associated Signs And Symptoms: Positive: Negative - Allergies/Home Medications Allergies/Adverse Reactions: Allergies Allergy/AdvReac Type Severity Reaction Status Date / Time lisinopril Allergy Rash Verified 05/25/18 08:31 naproxen Allergy Rash And Verified 05/25/18 08:31 Itching niacin Allergy Flushing, Verified 05/25/18 08:31 increased body heat PMH/Surg Hx/FS Hx/Imm Hx Previously Healthy: No - Mild DM. Prior UTI has been years ago. - Surgical History Surgical History: Yes Surgery Procedure, Year, and Place: Right [place], [place], [facility] [place], 2005, [place] KNEE REPLACEMENT RIGHT, 2003, [facility]. HYSTERECTOMY, 1972. GALLBLADDER, 2003. tonsillectomy A CHILD. RIGHT HIP REPLACEMENT - Family History Known Family History: Positive: Hypertension - Social History Alcohol Use: None Substance Use Type: None Smoking Status (MU): Never Smoked Tobacco Have You Smoked in the Last Year: No - Immunization History Most Recent Influenza Vaccination: 1942-5546 Most Recent Tetanus Shot: about 2014 Most Recent Pneumonia Vaccination: within the last 10 years Review of Systems Genitourinary: Frequency, Urgency All Other Systems Reviewed And Are Negative: Yes Physical Exam Triage Information Reviewed: Yes Appearance: Well-Appearing, No Pain Distress, Well-Nourished Vital Signs: Initial Vital Signs Temp 97.4 F 05/25/18 08:25 Pulse 82 05/25/18 08:25 Resp 16 05/25/18 08:25 BP 145/76 05/25/18 08:25 Pulse Ox 95 05/25/18 08:25 Vital Signs Reviewed: Yes Eye Exam: Normal Eyes: Positive: Conjunctiva Clear ENT: Positive: Normal ENT inspection Neck: Positive: Supple, Nontender, No Lymphadenopathy Respiratory: Positive: Chest non-tender, Lungs clear, Normal breath sounds, No respiratory distress, No accessory muscle use. Negative: Respiratory distress, Decreased breath sounds, Accessory muscle use, Crackles, Rhonchi Cardiovascular: Positive: RRR, No Murmur, Pulses Normal Abdomen Description: Positive: Nontender, No Organomegaly, Soft. Negative: CVA Tenderness (R), CVA Tenderness (L), Distended, Guarding Musculoskeletal: Positive: Strength Intact, ROM Intact, No Edema Neurological: Positive: Alert, Muscle Tone Normal. Negative: Fatigued Skin: Negative: rashes Complaint Female Dx - Course Course Of Treatment: she agrees to return for any worsening symptom or new symptoms such as fever, vomiting or flank pain. - Differential Dx/Diagnosis Provider Diagnoses: UTI. Discharge - Sign-Out/Discharge Documenting (check all that apply): Patient Departure - Discharge Plan Condition: Good Disposition: HOME Prescriptions: Cephalexin CAP* [Keflex CAP*] 500 mg PO TID #21 cap Patient Education Materials: Urinary Tract Infection in Women (ED) Referrals: Morgan Quiñones MD [Primary Care Provider] - - Billing Disposition and Condition Condition: GOOD Disposition: Home
== END 2018-05-25 09:46 | disposition home or self-care (01) ==
LOC: UCCORT 08:02
DX: N39.0 Urinary tract infection, site not specified (principal); Z88.8 Allergy status to other drugs, medicaments and biological substances; Z88.6 Allergy status to analgesic agent; Z96.651 Presence of right artificial knee joint; Z96.641 Presence of right artificial hip joint
CPT/HCPCS: 81003; 87086; 99212; G0463

== ENCOUNTER → 2018-11-23 06:38 | Day surgery (SDC) | payer MEDICARE, OTHER ==
--- NOTE | 2018-03-29 14:25 | HP ---
HISTORY AND PHYSICAL: DATE OF SURGERY/ADMISSION: 04/07/18 DATE OF OFFICE VISIT: 03/25/18 SURGEON: Amirah Mccarthy MD.* (DICTATED BY BECCA SOTO) PROCEDURE: Left carpal tunnel release. CHIEF COMPLAINT: Left wrist pain. HISTORY OF PRESENT ILLNESS: Ms. Clement is an 87-year-old female with complaints of left wrist and hand pain. EMG studies confirmed severe left carpal tunnel syndrome and she has elected to proceed with surgery. PAST MEDICAL HISTORY: Hypertension, high cholesterol, diabetes, depression, anxiety, and diverticulitis. PAST SURGICAL HISTORY: Hysterectomy, lumbar fusion, right total knee arthroplasty, cholecystectomy, tonsillectomy, and right total hip arthroplasty. CURRENT MEDICATIONS: 1. Benicar 40 mg daily. 2. Metoprolol 25 mg daily. 3. Metformin 500 mg daily. 4. Aspirin 81 mg daily. 5. Calcium, vitamin D. 6. Clonazepam 0.5 mg as needed. 7. Crestor 5 mg daily. ALLERGIES: NAPROXEN, LISINOPRIL, and NIACIN. FAMILY HISTORY: Diabetes, lung cancer, and kidney disease. SOCIAL HISTORY: She is an 87-year-old female. She lives alone. She does not smoke, use drugs or alcohol. REVIEW OF SYSTEMS: A complete 14-point review of systems was reviewed with the patient, it is positive for diabetes. She denies history of DVT, PE, hepatitis , HIV, or anesthesia problems. PHYSICAL EXAMINATION GENERAL: She is well developed, well nourished, in no acute distress. VITAL SIGNS: She stands 61 inches tall, weighs 184 pounds. Her blood pressure is 128/84 and her heart rate is 72. HEENT: Normocephalic, atraumatic. NECK: Supple. No palpable lymph nodes. PULMONARY: The lungs are clear to auscultation bilaterally. CARDIO: Regular rate and rhythm. Strong S1 and S2. ABDOMEN: Soft, nontender, and nondistended. NEUROLOGICAL: She is alert and oriented x3. MUSCULOSKELETAL: Left upper extremity, the skin is intact. There are no open wounds or abrasions. There is thenar atrophy at the hand with decreased sensation to light touch and pinprick over the median nerve distribution. Positive Tinel's and Phalen's at the wrist, positive compression sign at the wrist. Full range of motion of the thumb and fingers; 4+/5 hand local announcer and pinch strength. ASSESSMENT AND PLAN: Ms. Clement is an 87-year-old female with complaints of left wrist pain and numbness and tingling of the first 3 fingers on the left hand. EMG studies confirmed severe left carpal tunnel syndrome and she has elected to proceed with a left carpal tunnel release, which is scheduled for with Dr. Mccarthy. Dr. Mccarthy discussed the risks and benefits of the surgery at today's visit and all of her questions were answered. She will follow up with Dr. Mccarthy 2 weeks after the surgery. BECCA SOTO [id number]/CPS #: [id number] MTDD
--- NOTE | 2018-11-16 09:33 | HP ---
HISTORY AND PHYSICAL: DATE OF ADMISSION/SURGERY: 11/23/18 DATE OF OFFICE VISIT: 11/14/18 SURGEON: Amirah Mccarthy MD.* (DICTATED BY BECCA SOTO) PROCEDURE: Left carpal tunnel release. CHIEF COMPLAINT: Left wrist pain. HISTORY OF PRESENT ILLNESS: Ms. Clement is an 88-year-old female with confirmed carpal tunnel syndrome of the left upper extremity. She has failed conservative treatment and she has elected to proceed with a left carpal tunnel release. PAST MEDICAL HISTORY: Hypertension, diabetes, high cholesterol, depression, and anxiety. PAST SURGICAL HISTORY: Low back laminectomy, hysterectomy, cholecystectomy, left total knee arthroplasty, right total hip arthroplasty. CURRENT MEDICATIONS: 1. Benicar 40 mg daily. 2. Tylenol as needed. 3. Metformin 500 mg daily. 4. Calcium and vitamin D. 5. Clonazepam 0.5 mg q.h.s. 6. Crestor 5 mg daily. 7. Citalopram hydrobromide 20 mg daily. 8. Metoprolol 25 mg daily. 9. Aspirin 81 mg. 10. Detrol 4 mg daily. ALLERGIES: NAPROXEN, LISINOPRIL, and NIACIN. FAMILY HISTORY: Cancer and diabetes. SOCIAL HISTORY: She is an 88-year-old female. She lives alone. She does not smoke or use drugs. Uses alcohol rarely. REVIEW OF SYSTEMS: A complete 14-point review of systems was reviewed with the patient. It was positive for diabetes. She denies history of DVT, PE, hepatitis, HIV or anesthesia problems. PHYSICAL EXAMINATION GENERAL: She is well developed, well nourished, in no acute distress. VITAL SIGNS: She stands 5 feet 1-1/2 inches tall, weighs 197 pounds. Her blood pressure is 130/86 and heart rate 76. HEENT: Normocephalic, atraumatic. NECK: Supple. No palpable lymph nodes. PULMONARY: The lungs are clear to auscultation bilaterally. CARDIAC: Regular rate and rhythm. Strong S1 and S2. ABDOMEN: Soft, nontender, nondistended. NEUROLOGICAL: She is alert and oriented x3. MUSCULOSKELETAL: Left upper extremity skin is intact. There are no open wounds or abrasions. There is thenar atrophy with decreased sensation to light touch and pinprick in the median nerve distribution. She has positive Tinel's and Phalen's of the left wrist. She has a 2+ distal radius pulse, 4+/5 digital x ray service engineer and pinch strength. ASSESSMENT AND PLAN: Ms. Clement is an 88-year-old female with left carpal tunnel syndrome. She has elected to proceed with a left carpal tunnel release. The surgery is scheduled for 11/23/[address] Mccarthy discussed the risks and benefits of the surgery at today's visit and all of her questions were answered. She will follow up with Dr. Mccarthy 2 weeks after the surgery. BECCA SOTO [id number]/[facility] #: [id number] MTDQiana
[~2018-11-23 06:38] MED LIST changes: +Acetaminophen TAB* 325 MG PO PRN; -Buffered Lidocaine 0.9% SYRIN* 5 ML/SYR SYRINGE INTRADERM ONE; -Buffered Lidocaine 0.9% SYRIN* 5 ML/SYR SYRINGE ONE; +Buffered Lidocaine 1% SYRIN* 1 ML/SYRINGE INTRADERM ONE; +Bupivacaine 0.5%* 50 ML VIAL ONE; -Dexamethasone IV* 4 MG/ML 1 ML (4 MG) IV SLOW PU ONE; -Dexamethasone IV* 4 MG/ML 1 ML (4 MG) ONE; +EPHEDrine (Pressors)* 50 MG/ML VIAL ONE; +HYDROcodone/ACETAMIN 5-325 MG* 1 TAB PO PRN; +Lactated Ringers 1000 ML Bag* 1,000 ML IV SCH; +Lidocaine 1% INJ* 10 MG/ML 30 ML SDV ONE; +Lidocaine 2% PF * 5 ML VIAL ONE; +Midazolam* 1 MG/ML 2 ML VIAL (2 MG) ONE; +Naloxone* 0.4 MG/ML 1 ML VIAL IV PRN; +Propofol* 10 MG/ML 20 ML BTL ONE; +ceFAZolin 2 GM PREMIX in ORs 2 GM/50 ML BAG IVPB ONE; -ceFAZolin 2 GM PREMIX(*) 0 GM/0 ML BAG IVPB ONE; +fentaNYL* 50 MCG/ML 2 ML VIAL (100 MCG VIAL) IV PRN; +fentaNYL* 50 MCG/ML 2 ML VIAL (100 MCG VIAL) ONE
[2018-11-23 09:17] VITALS: BP 117/57
--- NOTE | 2018-11-23 19:56 | OP ---
DATE OF OPERATION: 11/23/18 - FORMERLY [facility] DATE OF : 04[birth year]10[birth year]29 SURGEON: Amirah Mccarhty MD [place] SECRETARY: BECCA Reis. Ms. Pino did help throughout the procedure with preparation of the wrist, wound retraction, and wound closure. ANESTHESIOLOGIST: Dr. Vera. ANESTHESIA: LMAC. PRE-OP DIAGNOSIS: Left median nerve compression at the wrist, carpal tunnel syndrome. POST-OP DIAGNOSIS: Left median nerve compression at the wrist, carpal tunnel syndrome. OPERATIVE PROCEDURE: Left open carpal tunnel release at the wrist. BRIEF HISTORY/INDICATION: Ms. Clement is an 88-year-old female with increasingly severe left wrist pain and numbness. EMG nerve conduction study confirmed severe carpal tunnel syndrome at the wrist. She failed conservative treatment. Due to continued pain and decreased quality of life, she elected to undergo open left carpal tunnel release. Informed consent was obtained from the patient. She understood the risks of surgery included, but were not limited to bleeding, infection, damage to nearby structures, continued pain, need for further surgery, continued weakness, continued numbness, stroke, heart attack, blood clot, and . She wished to proceed. INTRAOPERATIVE FINDINGS: Intraoperatively, the patient was noted to have a thickened transverse carpal ligament with obvious compression directly over the median nerve. ESTIMATED BLOOD LOSS: Less than 25 cc. TOURNIQUET TIME: 5 minutes. COMPLICATIONS: None. SPECIMEN: None. DESCRIPTION OF PROCEDURE: Ms. Clement was identified in the preanesthesia unit. Her left upper extremity was marked as the correct operative side. Informed consent was signed and placed in the chart. The patient was taken to the operating room and had LMAC anesthesia administered. Tourniquet was placed on the left upper extremity. Left upper extremity was prepped and draped in the usual sterile fashion. Preop time-out was made to correctly identify the patient, side, and site. Appropriate perioperative antibiotics were given within 1 hour of incision. 8 cc of 0.5% ropivacaine were used for local anesthesia. Tourniquet was inflated and total tourniquet time for this procedure was 5 minutes. A 2.5-cm incision was made longitudinally directly over the carpal tunnel. Tenotomies were used to dissect through the subcutaneous fat. The palmar fascia was in line with the skin incision. The transverse carpal ligament was easily visualized. A 15-blade was used to meticulously release the transverse carpal tunnel ligament in a longitudinal fashion. The median nerve was easily visualized. The nerve's chronic compression was evident. The ligament was released proximally and distally until there was no further compression of the nerve. Tourniquet was turned down at 5 minutes. The wound was copiously irrigated with sterile saline. Electrocautery was used to obtain meticulous hemostasis. The incision was closed using interrupted 3-0 nylon suture. Sterile Xeroform, 4x4's, and Webril were used to cover the incision. A plaster volar splint was applied. This was covered with an Papito wrap. The patient's anesthesia was reversed without difficulty. She was taken to the PACU in stable condition. Intended weightbearing will be nonweightbearing left upper extremity. She will elevate, ice, and rest. [id number]/[facility] #: [id number] CINDY
== END | disposition home or self-care (01) ==
LOC: OR 06:38
PROVIDERS: ATTEND Orthopaedic Surgery Adult Reconstructive Orthopaedic Surgery
DX: G56.02 Carpal tunnel syndrome, left upper limb (principal); E11.9 Type 2 diabetes mellitus without complications; Z79.84 Long term (current) use of oral hypoglycemic drugs; I10 Essential (primary) hypertension; E78.00 Pure hypercholesterolemia, unspecified; F41.8 Other specified anxiety disorders; D64.9 Anemia, unspecified
CPT/HCPCS: J0690; J2250; J2704; J3010